=== PATIENT | male | born 1950 | race Caucasian/White ===

== ENCOUNTER 2023-11-10 11:08 | Outpatient (AMB) | payer MEDICARE, MEDICAID, SELFPAY ==
--- NOTE | 2023-11-10 11:20 | HO.NEPHOV_ITS ---
HPI HPI Comments History of Present Illness Details 73-year-old man with a history of hypert ension hyperlipidemia diabetes mellitus As disease obesity he is here for follow-up. He was previously seen during hospitalization. He had a history of pulmonary edema which was treated with Lasix. He did have an episode of SVT. He is currently being followed by Cardiology as well. History of acute kidney injury superimposed on chronic kidney disease. He is here for follow-up regarding the chronic kidney disease. He is being seen at the lymphedema clinic. He was on Lasix over he ran out of medications and for the last 3 weeks he has not been taking the Lasix. There has been no change in the leg edema. [facility] Surgical History H/O elbow surgery Family History Mother Diabetes Cancer Father Hypertension Social History Alcohol intake: former Patient Tobacco Use Status: Former Tobacco user Vital Signs 11/10/23 11:26 Height 5 ft 9 in Weight 257 lb BMI 37.9 BP 144/72 H Blood Pressure Location Lt brachial Position Sitting Pulse 84 Pulse Source Pulse Oximeter Pulse Oximetry (%) 99 Oxygen Delivery Method Room Air Physical Exam Vital Signs: Last Vital Signs Pulse 84 11/10/23 11:26 BP 144/72 H 11/10/23 11:26 Pulse Ox 99 11/10/23 11:26 Oxygen Delivery Method Room Air 11/10/23 11:26 BMI result Body Mass Index 37.9 Const General: comfortable Nutritional Appearance: well nourished Orientation/consciousness: patient oriented x3 HEENT Head: No normal to inspection Mouth: moist mucous membranes Neck Neck: Yes supple and Yes no JVD Resp Auscultation: clear to auscultation bilaterally, no rales and rub present Cardio Jugular venous distension: no JVD Palpation: no palpable S3 and no palpable S4 Heart sounds: no rubs GI Palpation (GI): Soft to palpation and nontender Percussion: No Fluid wave present General: Yes no CVA tenderness Back/Spine/Pelvis Back: no CVA tenderness Skin General skin exam: no rashes or lesions noted Neuro General: patient oriented x3 Assessment & Plan Assessment & Plan (1) CKD (chronic kidney disease): Code(s): N18.9 - Chronic kidney disease, unspecified (2) HTN (hypertension): Code(s): I10 - Essential (primary) hypertension (3) Edema: Code(s): R60.9 - Edema, unspecified (4) Hyponatremia: Code(s): E87.1 - Hypo-osmolality and hyponatremia Plan Elderly man with a history of CKD in a setting of longstanding hypertension diabetes medicine obesity. Renal function has been relatively stable. He had DONG which has resolved. Goal is to slow the portion disease. Continue to avoid hypotension. He has not been on Lasix for 3 weeks despite this there has been no change in his leg edema and he has no respiratory symptoms. Therefore we can hold off on Lasix for the time being and observe him. Continue overt nephrotoxic agents including NSAIDs. He will benefit from SGLT2 inhibitors As for the hyponatremia the recent serum sodium was normal. The serum sodium drops less than 130 millimoles I would recommend p.o. water restriction. Coding Level of Care Code Est Pt Level 4 (62110) Diagnoses CKD (chronic kidney disease) N18.9 HTN (hypertension) I10 Edema R60.9 Hyponatremia E87.1 Results Reviewed Results Reviewed: Labs pending Nephrology Results: No Data to Display
[2023-11-10 11:26] VITALS: BP 144/72; PULSE 84; O2SAT 99; BMI 37.9
== END 2023-11-10 11:37 | disposition home or self-care (01) ==
PROVIDERS: PCP Internal Medicine; Visit Provider Internal Medicine Hypertension Specialist
DX: I12.9 Hypertensive chronic kidney disease with stage 1 through stage 4 chronic kidney disease, or unspecified chronic kidney disease (principal); N18.9 Chronic kidney disease, unspecified; R60.9 Edema, unspecified; E87.1 Hypo-osmolality and hyponatremia
CPT/HCPCS: 99214

== ENCOUNTER → 2023-11-10 11:08 | Outpatient (BNVA) | payer MEDICARE, MEDICAID, SELFPAY | PROVIDERS: PCP Internal Medicine; Visit Provider Internal Medicine Hypertension Specialist | DX: I12.9 Hypertensive chronic kidney disease with stage 1 through stage 4 chronic kidney disease, or unspecified chronic kidney disease (principal); N18.9 Chronic kidney disease, unspecified; R60.9 Edema, unspecified; E87.1 Hypo-osmolality and hyponatremia | CPT/HCPCS: 99212 ==

== ENCOUNTER 2024-04-12 08:43 | Outpatient (AMB) | payer MEDICARE, MEDICAID, SELFPAY ==
[2024-04-12 08:54] VITALS: BP 144/66; PULSE 82; O2SAT 97; BMI 37.2
--- NOTE | 2024-04-12 08:54 | HO.NEPHOV_ITS ---
Vital Signs 04/12/24 08:54 04/12/24 09:11 Height 5 ft 9 in Weight 252 lb BMI 37.2 BP 144/66 H 124/66 Blood Pressure Location Lt brachial Lt brachial Position Sitting Sitting Pulse 82 Pulse Source Pulse Oximeter Pulse Oximetry (%) 97 Oxygen Delivery Method Room Air Intake Visit Reasons: March follow up/ Conf [employer]eng[employer]ving [employer]inter Required: No Accompanied by: Daughter Allergies brimonidine Allergy (Verified 04/12/24 08:58) Unknown Medication List - Last Reconciled 04/12/24 by Sahil Hummel MD ferrous sulfate 325 mg PO DAILY insulin glargine (Lantus Solostar U-100 Insulin) 45 units subcut insulin lispro (Humalog KwikPen (U-100) Insulin) 1 sliding scale dose subcut USEASDIRECTD latanoprost 0.005% 1 drp ophthalmic (eye) QPM timolol maleate 0.5% 1 drp ophthalmic (eye) QAM HPI Comments Details: 73-year-old man with a history of hypertension hyperlipidemia diabetes mellitus As disease obesity he is here for follow-up. He was previously seen during hospitalization. He had a history of pulmonary edema which was treated with Lasix. He did have an episode of SVT. He is currently being followed by Cardiology as well. History of acute kidney injury superimposed on chronic kidney disease. He is here for follow-up regarding the chronic kidney disease. He is being seen at the lymphedema clinic. He was on Lasix over he ran out of medications and for the last 3 weeks he has not been taking the Lasix. There has been no change in the leg edema. 04/12/24: Doing better. Blood sugar is better controlled Waiting to go to lymphedema clinic in May [facility] Surgical History H/O elbow surgery Family History Mother Diabetes Cancer Father Hypertension Social History Alcohol intake: former Patient Tobacco Use Status: Former Tobacco user Physical Exam Vital Signs: Last Vital Signs Pulse 82 04/12/24 08:54 BP 124/66 04/12/24 09:11 Pulse Ox 97 04/12/24 08:54 Oxygen Delivery Method Room Air 04/12/24 08:54 BMI result Body Mass Index 37.2 Const General: comfortable; No acute distress Orientation/consciousness: patient oriented x3 Eyes General: appearance normal, both eyes and all related structures Visual Perez: normal visual perez by confrontation Neck Neck: Yes supple and Yes no JVD Resp Effort & Inspection: normal respiratory effort and respiratory effort not decreased Auscultation: rhonchi Cardio Palpation: no palpable S3 and no palpable S4 Heart sounds: no rubs GI Inspection: Yes normal to inspection Palpation (GI): Soft to palpation Percussion: Yes normal to percussion Auscultation: normal bowel sounds General: Yes no CVA tenderness Back/Spine/Pelvis Back: no CVA tenderness Skin General skin exam: no petechiae and no purpura Neuro General: patient oriented x3 and no focal motor deficits Extrem General: No clubbing and Yes edema Results Reviewed Results Reviewed: Serum creatinine 1.4 on 02/17/2024 Nephrology Results: No Data to Display Assessment & Plan Assessment & Plan (1) CKD (chronic kidney disease): Code(s): N18.9 - Chronic kidney disease, unspecified Category: Medical (2) HTN (hypertension): Code(s): I10 - Essential (primary) hypertension Category: Medical (3) Edema: Code(s): R60.9 - Edema, unspecified Category: Medical (4) Hyponatremia: Code(s): E87.1 - Hypo-osmolality and hyponatremia Category: Medical Plan Elderly man with a history of CKD in a setting of longstanding hypertension ,diabetes ,obesity. Renal function has been relatively stable. He had DONG which has resolved. Goal is to slow the progression of thekidney disease. Continue to avoid hypotension. Creatinine remains relatively stable around 1.4 mg/dL. Off Lasix since Oct 2023 Continue overt nephrotoxic agents including NSAIDs. He will benefit from SGLT2 inhibitors As for the hyponatremia - the recent serum sodium was normal. The serum sodium drops less than 130 millimoles I would recommend p.o. water restriction. Orders: Orders Comprehensive Met. Panel Today N18.9 - Chronic kidney disease, unspecified Complete Blood Count Auto Diff Today N18.9 - Chronic kidney disease, unspecified Coding Level of Care Code Est Pt Level 4 (08931) Diagnoses CKD (chronic kidney disease) N18.9 HTN (hypertension) I10 Edema R60.9 Hyponatremia E87.1
[2024-04-12 09:11] VITALS: BP 124/66
== END 2024-04-12 09:19 | disposition home or self-care (01) ==
PROVIDERS: PCP Internal Medicine; Visit Provider Internal Medicine Hypertension Specialist
DX: I12.9 Hypertensive chronic kidney disease with stage 1 through stage 4 chronic kidney disease, or unspecified chronic kidney disease (principal); N18.9 Chronic kidney disease, unspecified; R60.9 Edema, unspecified; E87.1 Hypo-osmolality and hyponatremia
CPT/HCPCS: 99214

== ENCOUNTER 2024-04-12 09:21 | Outpatient (REF) | payer MEDICARE, MEDICAID, SELFPAY ==
[2024-04-12 18:05] LABS: MANUAL DIFF FLAG NO
[2024-04-12 18:10] LABS: Basophils Percent Auto 0.4 % (0-2); Eosinophils Absolute Auto 0.2 X10*3/uL (0.0-0.4); Hemoglobin 13.6 g/dl (14.0-18.0); Imm Gran Abs Auto 0.03 X10*3/uL (0.00-0.03); Imm Gran Pct Auto 0.4 % (0.0-0.4); Lymphocytes Percent Auto 13.3 % (20-40); Mean Corpuscular HGB Conc 32.4 g/dl (31.0-36.0); Mean Corpuscular Volume 86.6 fL (80.0-98.0); Mean Platelet Volume 11.2 fL (9.4-12.4); Monocytes Absolute Auto 0.6 X10*3/uL (0.1-1.2); Monocytes Percent Auto 7.7 % (2-11); Neutrophils Absolute Auto 5.6 x10*3/uL (2.0-8.3); Neutrophils Percent Auto 75.2 % (45-73); Platelet Count 203 X10*3/uL (160-400); Red Blood Count 4.85 X10*6/uL (4.60-5.80); Red Cell Distribution Width 12.9 % (11.0-16.0); White Blood Count 7.4 X10*3/uL (4.8-10.8)
[2024-04-12 18:34] LABS: Alanine Aminotransferase 10 U/L (0-40); Albumin Level 3.3 g/dL (3.5-5.0); Alkaline Phosphatase 84 U/L (39-117); Anion Gap 11 (12-20); Aspartate Amino Transferase 13 U/L (5-37); Bilirubin Total 0.6 mg/dL (0.0-1.0); Blood Urea Nitrogen 28 mg/dL (9-16); Calcium 8.4 mg/dL (8.4-10.2); Carbon Dioxide 27 mmol/L (22-29); Chloride 104 mmol/L (96-108); Estimated Glomerular Filt Rate 52; Glucose Random 195 mg/dL (60-115); Potassium 4.6 mmol/L (3.3-5.1); Sodium 137 mmol/L (135-145); Total Protein 7.4 g/dL (6.5-8.0)
== END 2024-04-12 09:22 | disposition home or self-care (01) ==
LOC: HO.HKASLDS 09:21
PROVIDERS: Visit Provider Internal Medicine Hypertension Specialist
DX: E11.22 Type 2 diabetes mellitus with diabetic chronic kidney disease (principal); I12.9 Hypertensive chronic kidney disease with stage 1 through stage 4 chronic kidney disease, or unspecified chronic kidney disease; N18.9 Chronic kidney disease, unspecified; E78.5 Hyperlipidemia, unspecified; R60.9 Edema, unspecified; E87.1 Hypo-osmolality and hyponatremia; E66.9 Obesity, unspecified
CPT/HCPCS: 36415; 80053; 85025; 99212

== ENCOUNTER 2024-11-01 08:57 | Outpatient (AMB) | payer MEDICARE, MEDICAID, SELFPAY ==
[2024-11-01 09:11] VITALS: BP 112/60; PULSE 78; O2SAT 98; BMI 36.0
--- NOTE | 2024-11-01 09:11 | HO.NEPHOV ---
Vital Signs 11/01/24 09:11 Height 5 ft 9 in Weight 244 lb BMI 36.0 BP 112/60 Blood Pressure Location Lt brachial Position Sitting Pulse 78 Pulse Source Pulse Oximeter Pulse Oximetry (%) 98 Oxygen Delivery Method Room Air Intake Visit Reasons: 6 mon follow up-Conf Supervisor Title Required: No Accompanied by: Daughter Allergies brimonidine Allergy (Verified 11/01/24 09:21) Unknown Medication List - Last Reconciled 11/01/24 by Sahil Hummel MD diltiazem HCl ER (Tiadylt ER) 180 mg PO DAILY ferrous sulfate 325 mg PO DAILY furosemide 20 mg PO QAM insulin glargine (Lantus Solostar U-100 Insulin) 45 units subcut insulin lispro (Humalog KwikPen (U-100) Insulin) 1 sliding scale dose subcut USEASDIRECTD isosorbide mononitrate ER 60 mg PO DAILY latanoprost 0.005% 1 drp ophthalmic (eye) QPM lidocaine 5% 1 patch topical DAILY timolol maleate 0.5% 1 drp ophthalmic (eye) QAM HPI Comments Details: 73-year-old man with a history of hypertension hyperlipidemia diabetes mellitus As disease obesity he is here for follow-up. He was previously seen during hospitalization. He had a history of pulmonary edema which was treated with Lasix. He did have an episode of SVT. He is currently being followed by Cardiology as well. History of acute kidney injury superimposed on chronic kidney disease. He is here for follow-up regarding the chronic kidney disease. He is being seen at the lymphedema clinic. He was on Lasix over he ran out of medications and for the last 3 weeks he has not been taking the Lasix. There has been no change in the leg edema. 04/12/24: Doing better. Blood sugar is better controlled Waiting to go to lymphedema clinic in 11/01/24 h/o Accidental fall in [place] 2023; s/p fractures and blood transfusion Later to [facility] until Oct 20 2024 Leg edema has improved No dyspnea [facility] Surgical History H/O elbow surgery Family History Mother Diabetes Cancer Father Hypertension Social History Alcohol intake: former Patient Tobacco Use Status: Former Tobacco user Physical Exam Vital Signs: Last Vital Signs Pulse 78 11/01/24 09:11 BP 112/60 11/01/24 09:11 Pulse Ox 98 11/01/24 09:11 Oxygen Delivery Method Room Air 11/01/24 09:11 BMI result Body Mass Index 36.0 Comfortable Neck supple no JVD. Lungs entry equal no rales. DEcreased Air entry on right base Heart S1-S2 heard no gallop or rub. Abdomen soft nontender. Neuro alert awake oriented. No asterixis. Extremities 1+ edema. Results Reviewed Nephrology Results: Hgb 13.6 g/dl (14.0-18.0) L 04/12/24 WBC 7.4 X10*3/uL (4.8-10.8) 04/12/24 Plt Count 203 X10*3/uL (160-400) 04/12/24 Sodium 137 mmol/L (135-145) 04/12/24 Potassium 4.6 mmol/L (3.3-5.1) 04/12/24 Chloride 104 mmol/L (96-108) 04/12/24 Carbon Dioxide 27 mmol/L (22-29) 04/12/24 BUN 28 mg/dL (9-16) H 04/12/24 Creatinine 1.35 mg/dL (0.5-1.4) 04/12/24 Calcium 8.4 mg/dL (8.4-10.2) 04/12/24 Assessment & Plan Assessment & Plan (1) CKD (chronic kidney disease): Code(s): N18.9 - Chronic kidney disease, unspecified Category: Medical (2) HTN (hypertension): Code(s): I10 - Essential (primary) hypertension Category: Medical (3) Edema: Code(s): R60.9 - Edema, unspecified Category: Medical (4) Hyponatremia: Code(s): E87.1 - Hypo-osmolality and hyponatremia Category: Medical Plan Elderly man with a history of CKD in a setting of longstanding hypertension ,diabetes ,obesity. Renal function has been relatively stable. He had DONG which has resolved. Goal is to slow the progression of thekidney disease. Continue to avoid hypotension. Sustained DONG - cr was 2.7 and returned to 1.42 as of 10/19/24 Creatinine has been relatively stable around 1.42 mg/dL. Continue overt nephrotoxic agents including NSAIDs. He will benefit from SGLT2 inhibitors As for the hyponatremia - the recent serum sodium was normal. The serum sodium drops less than 130 millimoles I would recommend p.o. water restriction. Keep on low dose Furosemide 20 mg QD Orders: Orders Basic Metabolic Panel 6 Months N18.9 - Chronic kidney disease, unspecified Complete Blood Count no Diff 6 Months N18.9 - Chronic kidney disease, unspecified Medications: New furosemide 20 mg PO QAM 90 tabs 1RF Coding Level of Care Code Est Pt Level 4 (37153) Diagnoses CKD (chronic kidney disease) N18.9 HTN (hypertension) I10 Edema R60.9 Hyponatremia E87.1
--- OUTSIDE RECORDS SUMMARY | 2024-11-01 09:14 | XMS_ITS | Clinical Summary ---
Author Organization Unknown Care Team Providers Care City Planning Engineer Name Role Phone ALCIRA HANDLEY, IMELDA Unavailable Unavailable GIANNA LOPEZ LPN, RONALD Unavailable Unavail arnold RANDALL RN, REGIS Unavailable Unavailable Payers Payer Name Policy Type Policy Number Effective Date Expira tion Date MEDICARE - [facility]/[place] - [facility] [id number] Problems Condition Name Condition Details Condition Category Status Onset Date Resolution Date Last Treatment Date Treating Clinician Comments HYP HRT AND CHR KDNY DIS W HRT FAIL AND STG 1-4/UNSP CHR KDNY Active 02-17 00:00: 00 HEART FAILURE, UNSPECIFIED Active 02-17 00:00: 00 TYPE 2 DIABETES MELLITUS W DIABETIC CHRONIC KIDNEY DISEASE Active 02-17 00:00: 00 CHRONIC KIDNEY DISEASE, STAGE 3 UNSPECIFIED Active 02-17 00:00: 00 TYPE 2 DIABETES MELLITUS WITH DIABETIC NEUROPATHY, UNSP Active 02-17 00:00: 00 TYPE 2 DIABETES W DIABETIC PERIPHERAL ANGIOPATH W/O GANGRENE Active 02-17 00:00: 00 ALLERGIC RHINITIS, UNSPECIFIED Active 02-17 00:00: 00 HYPERLIPIDEM IA, UNSPECIFIED Active 02-17 00:00: 00 LEGAL BLINDNESS, DEFINED IN [place] Active 02-17 00:00: 00 FDC (CURRENT) USE OF ASPIRIN Active 02-17 00:00: 00 FDC (CURRENT) USE OF INSULIN Active 02-17 00:00: 00 PERSONAL HISTORY OF NICOTINE DEPENDENCE Active 02-17 00:00: 00 Allergies, Adverse Reactions, Alerts Allergy Name Allergy Type Status Severity Reaction(s) Onset Date Inactive Date Treating Clinician Comments ALPHAGAN P EYE DROPS Propensity to adverse reactions Active 2023-02 15:05:1 1 Medications Ordered Medication Name Filled Medication Name Start Date Stop Date Current Medication? Ordering Clinician Indication Dosage Frequency Signature (SIG) Comments Components cephalexin 500 mg capsule 02-15 00:00: 00 02-22 23:59 :00 No [id number] 1 capsule 3 TIMES DAILY 1 capsule 3 TIMES DAILY (route: oral) Med Classific ation: Anti-Infe ctive Agents ammonium lactate 12 % lotion 02-17 00:00: 00 07-20 23:59 :00 No [id number] Per instruc tions 2 TIMES DAILY Per instructio ns 2 TIMES DAILY (route: topical) Med Classific ation: Dermatolo gical aspirin 81 mg tablet,marcy yed release 02-17 00:00: 00 07-20 23:59 :00 No [id number] 1 tablet DAILY 1 tablet DAILY (route: oral) Med Classific ation: Hematolog ical Agents atorvastati n 10 mg tablet 02-17 00:00: 00 07-20 23:59 :00 No [id number] 1 tablet DAILY 1 tablet DAILY (route: oral) Med Classific ation: Cardiovas cular Therapy Agents diltiazem ER 180 mg capsule,24 hr,extended release 02-17 00:00: 00 07-20 23:59 :00 No [id number] 1 capsule DAILY 1 capsule DAILY (route: oral) Med Classific ation: Cardiovas cular Therapy Agents ferrous sulfate 325 mg (65 mg iron) tablet 02-17 00:00: 00 07-20 23:59 :00 No [id number] 1 tablet DAILY 1 tablet DAILY (route: oral) Med Classific ation: Electroly te Balance-N utritiona l Products furosemide 20 mg tablet 02-17 00:00: 00 07-20 23:59 :00 No [id number] 1 tablet DAILY 1 tablet DAILY (route: oral) Med Classific ation: Cardiovas cular Therapy Agents insulin aspart (U-100) 100 unit/mL (3 mL) subcutaneou s pen 02-17 00:00: 00 07-20 23:59 :00 No [id number] Per instruc tions 3 TIMES DAILY Per instructio ns 3 TIMES DAILY (route: subcutaneo us) Med Classific ation: Endocrine isosorbide mononitrate ER 60 mg tablet,exte nded release 24 hr 02-17 00:00: 00 07-20 23:59 :00 No [id number] 1 tablet DAILY 1 tablet DAILY (route: oral) Med Classific ation: Cardiovas cular Therapy Agents latanoprost (PF) 0.005 % eye drops 02-17 00:00: 00 07-20 23:59 :00 No [id number] 1 drops DAILY 1 drops DAILY (route: ophthalmic (eye)) Med Classific ation: Ophthalmi c Agents Levemir FlexPen 100 unit/mL (3 mL) solution subcutaneou s insulin pen 02-17 00:00: 00 07-20 23:59 :00 No [id number] 45 unit BEDTIME 45 unit BEDTIME (route: subcutaneo us) Med Classific ation: Endocrine triamcinolo ne acetonide 0.1 % topical ointment 02-17 00:00: 00 07-20 23:59 :00 No [id number] 1 inch 2 TIMES DAILY 1 inch 2 TIMES DAILY (route: topical) Med Classific ation: Dermatolo gical Vital Signs Vital Name Observation Time Observation Value Commen ts Temperature 2023-03-12 10:21:00.000 98 [degF] Temperature 2023-03-05 17:42:00.000 97.4 [degF] Temperature 2023-02-26 10:25:00.000 98.6 [degF] Temperature 2023-02-23 13:57:00.000 98.5 [degF] Temperature 2023-02-19 14:28:00.000 97.5 [degF] Temperature 2023-02-17 09:44:00.000 98.1 [degF] BMI (%) 2023-02-17 09:44:00.000 37 kg/m2 Height 2023-02-17 09:44:00.000 70 [in_us] Pulse 2023-03-12 10:21:00.000 76 /min Pulse 2023-03-05 17:42:00.000 81 /min Pulse 2023-02-26 10:25:00.000 73 /min Pulse 2023-02-23 13:57:00.000 77 /min Pulse 2023-02-19 14:28:00.000 85 /min Pulse 2023-02-17 09:44:00.000 81 /min O2 Saturation (%) 2023-03-12 10:21:00.000 98 % O2 Saturation (%) 2023-03-05 17:42:00.000 98 % O2 Saturation (%) 2023-02-26 10:25:00.000 100 % O2 Saturation (%) 2023-02-23 13:57:00.000 99 % O2 Saturation (%) 2023-02-19 14:28:00.000 98 % O2 Saturation (%) 2023-02-17 09:44:00.000 98 % Respirations 2023-03-12 10:21:00.000 20 /min Respirations 2023-03-05 17:42:00.000 18 /min Respirations 2023-02-26 10:25:00.000 20 /min Respirations 2023-02-23 13:57:00.000 20 /min Respirations 2023-02-19 14:28:00.000 18 /min Respirations 2023-02-17 09:44:00.000 20 /min Weight (lbs) 2023-03-12 10:24:00.000 260 [lb_av] Weight (lbs) 2023-03-05 17:42:00.000 260 [lb_av] Weight (lbs) 2023-02-26 10:25:00.000 260 [lb_av] Weight (lbs) 2023-02-23 13:57:00.000 260 [lb_av] Weight (lbs) 2023-02-19 14:28:00.000 260 [lb_av] Weight (lbs) 2023-02-17 09:44:00.000 260.7 [lb_av] Systolic Blood Pressure 2023-03-12 10:21:00.000 130 mm [Hg] Systolic Blood Pressure 2023-03-05 17:42:00.000 124 mm [Hg] Systolic Blood Pressure 2023-02-26 10:25:00.000 136 mm [Hg] Systolic Blood Pressure 2023-02-23 13:57:00.000 138 mm [Hg] Systolic Blood Pressure 2023-02-19 14:28:00.000 124 mm [Hg] Systolic Blood Pressure 2023-02-17 09:44:00.000 156 mm [Hg] Diastolic Blood Pressure 2023-03-12 10:21:00.000 72 mm [Hg] Diastolic Blood Pressure 2023-03-05 17:42:00.000 72 mm [Hg] Diastolic Blood Pressure 2023-02-26 10:25:00.000 82 mm [Hg] Diastolic Blood Pressure 2023-02-23 13:57:00.000 74 mm [Hg] Diastolic Blood Pressure 2023-02-19 14:28:00.000 72 mm [Hg] Diastolic Blood Pressure 2023-02-17 09:44:00.000 86 mm [Hg] Plan of Treatment Planned Activity Planned Date Details Comments Future Scheduled Test SKILLED NU RSE TO EVALUATE PATIENT, IDENTIFY PRIMARY AND CO-MORBID CONDITIONS CODED PER CODING GUIDELINES, AND DEVELOP PATIENT SPECIFIC PLAN OF CARE THAT INCLUDES PATIENT GOAL FOR HOME HEALTH. [code = SKILLED NURSE TO EVALUATE PATIENT, IDENTIFY PRIMARY AND CO-MORBID CONDITIONS CODED PER CODING GUIDELINES, AND DEVELOP PATIENT SPECIFIC PLAN OF CARE THAT INCLUDES PATIENT GOAL FOR HOME HEALTH.] Future Scheduled Test SKILLED NU RSE TO PROVIDE TEACHING/REINFORCEMENT RELATED TO URINARY INCONTINENCE. [code = SKILLED NURSE TO PROVIDE TEACHING/REINFORCEMENT RELATED TO URINARY INCONTINENCE.] Future Scheduled Test SKILLED NU RSE FOR O/A OF LOWER EXTREMITIES TO IDENTIFY CHANGES OR LESIONS ASSOCIATED WITH DIABETES MELLITUS FOR EARLY INTERVENTIONS OF COMPLICATIONS. SKILLED NURSE TO PROVIDE INSTRUCTION ON PROPER DIABETIC SKIN/FOOT CARE. [code = SKILLED NURSE FOR O/A OF LOWER EXTREMITIES TO IDENTIFY CHANGES OR LESIONS ASSOCIATED WITH DIABETES MELLITUS FOR EARLY INTERVENTIONS OF COMPLICATIONS. SKILLED NURSE TO PROVIDE INSTRUCTION ON PROPER DIABETIC SKIN/FOOT CARE.] Future Scheduled Test SKILLED NU RSE TO REVIEW PATIENT MEDICATIONS. INSTRUCT PATIENT/CAREGIVER ON MONITORING OF EFFECTIVENESS, ADVERSE DRUG REACTIONS, SIDE EFFECTS OF ALL MEDICATIONS (PRESCRIPTION/-OTC), AND HOW AND WHEN TO REPORT PROBLEMS. [code = SKILLED NURSE TO REVIEW PATIENT MEDICATIONS. INSTRUCT PATIENT/CAREGIVER ON MONITORING OF EFFECTIVENESS, ADVERSE DRUG REACTIONS, SIDE EFFECTS OF ALL MEDICATIONS (PRESCRIPTION/-OTC), AND HOW AND WHEN TO REPORT PROBLEMS.] Future Scheduled Test SKILLED NU RSE TO PERFORM HOME SAFETY AND FALL ASSESSMENT AND PROVIDE INSTRUCTION TO IMPLEMENT HOME SAFETY AND FALL PREVENTION STRATEGIES. [code = SKILLED NURSE TO PERFORM HOME SAFETY AND FALL ASSESSMENT AND PROVIDE INSTRUCTION TO IMPLEMENT HOME SAFETY AND FALL PREVENTION STRATEGIES.] Future Scheduled Test SKILLED NU RSE TO PROVIDE ASSESSMENT AND TEACHING/REINFORCEMENT OF MANAGEMENT OF DEPRESSION INCLUDING DISEASE PROCESS, MEDICATION MANAGEMENT, COPING SKILLS AND IDENTIFY CHANGES ASSOCIATED WITH DEPRESSIVE DISORDERS FOR EARLY INTERVENTION. [code = SKILLED NURSE TO PROVIDE ASSESSMENT AND TEACHING/REINFORCEMENT OF MANAGEMENT OF DEPRESSION INCLUDING DISEASE PROCESS, MEDICATION MANAGEMENT, COPING SKILLS AND IDENTIFY CHANGES ASSOCIATED WITH DEPRESSIVE DISORDERS FOR EARLY INTERVENTION.] Future Scheduled Test SKILLED NU RSE MAY OBTAIN U/A AND CS X 3 IF INDICATED FOR SIGNS AND SYMPTOMS OF UTI INCLUDING URINARY URGENCY/FREQUENCY, DYSURIA, FOUL ODOR, HEMATURIA, AND/OR FEVER. [code = SKILLED NURSE MAY OBTAIN U/A AND CS X 3 IF INDICATED FOR SIGNS AND SYMPTOMS OF UTI INCLUDING URINARY URGENCY/FREQUENCY, DYSURIA, FOUL ODOR, HEMATURIA, AND/OR FEVER.] Future Scheduled Test PATIENT GÓMEZ S A RISK OF HOSPITALIZATION AND ED USE. SKILLED NURSE TO ESTABLISH SUPPORT MEASURES TO MINIMIZE RISK OF HOSPITALIZATION AND ED USE, AND INSTRUCT PATIENT/CAREGIVER ON METHODS TO REDUCE AVOIDABLE HOSPITALIZATION AND ED USE. [code = PATIENT HAS A RISK OF HOSPITALIZATION AND ED USE. SKILLED NURSE TO ESTABLISH SUPPORT MEASURES TO MINIMIZE RISK OF HOSPITALIZATION AND ED USE, AND INSTRUCT PATIENT/CAREGIVER ON METHODS TO REDUCE AVOIDABLE HOSPITALIZATION AND ED USE.] Future Scheduled Test SKILLED NU RSE TO PROVIDE INSTRUCTION TO PATIENT/CAREGIVER RELATED TO DISCHARGE PLANNING. [code = SKILLED NURSE TO PROVIDE INSTRUCTION TO PATIENT/CAREGIVER RELATED TO DISCHARGE PLANNING.] Future Scheduled Test SKILLED NU RSE FOR OBSERVATION AND ASSESSMENT OF PATIENTS PAIN LEVEL AND EFFECTIVENESS OF PAIN MANAGEMENT REGIMEN. SKILLED NURSE TO INSTRUCT PATIENT/CAREGIVER REGARDING PHARMACOLOGIC AND NON-PHARMACOLOGIC PAIN CONTROL MEASURES. SKILLED NURSE TO REPORT TO PHYSICIAN IF PAIN IS UNCONTROLLED WITH CURRENT PAIN MANAGEMENT REGIMEN. [code = SKILLED NURSE FOR OBSERVATION AND ASSESSMENT OF PATIENTS PAIN LEVEL AND EFFECTIVENESS OF PAIN MANAGEMENT REGIMEN. SKILLED NURSE TO INSTRUCT PATIENT/CAREGIVER REGARDING PHARMACOLOGIC AND NON-PHARMACOLOGIC PAIN CONTROL MEASURES. SKILLED NURSE TO REPORT TO PHYSICIAN IF PAIN IS UNCONTROLLED WITH CURRENT PAIN MANAGEMENT REGIMEN.] Future Scheduled Test SKILLED NU RSE FOR O/A, TEACHING AND MANAGEMENT OF CKD FOR EARLY IDENTIFICATION OF EXACERBATION OF DISEASE PROCESS [code = SKILLED NURSE FOR O/A, TEACHING AND MANAGEMENT OF CKD FOR EARLY IDENTIFICATION OF EXACERBATION OF DISEASE PROCESS] Future Scheduled Test SKILLED NU RSE FOR O/A RELATED TO SIGNS AND SYMPTOMS OF INFECTION AND TO PROVIDE TEACHING REGARDING INFECTION CONTROL MEASURES RIGHT BUTT CELLULITIS. [code = SKILLED NURSE FOR O/A RELATED TO SIGNS AND SYMPTOMS OF INFECTION AND TO PROVIDE TEACHING REGARDING INFECTION CONTROL MEASURES RIGHT BUTT CELLULITIS.] Future Scheduled Test NEED FOR S KILLED TEACHING AND INTERVENTION RELATED TO STAGE 1 ON R BUTTOCKS SKILLED NURSE OR TRAINED PATIENT/CAREGIVER TO PERFORM WOUND CARE USING ASEPTIC TECHNIQUE, CLEANSE/IRRIGATE WITH NS PAT DRY WITH GAUZE, APPLY ZGUARD TO PERIWOUND, COVER WITH BORDERED FOAM DRESSING, WOUND CARE TO BE PERFORMED EVERY OTHER DAY AND PRN IF SOILED OR DISLODGED. 1-2 PRN SKILLED NURSE VISITS FOR WOUND CARE DUE TO COMPLICATIONS. SKILLED NURSE TO OBTAIN WOUND CULTURE PRN S/S OF INFECTION. WOUND CARE WILL BE PERFORMED BY TRAINED CAREGIVER ON DAYS WHEN SKILLED NURSE IS NOT SCHEDULED FOR A VISIT. DISCONTINUE WOUND CARE/SUPPLIES ONCE WOUND IS HEALED. [code = NEED FOR SKILLED TEACHING AND INTERVENTION RELATED TO STAGE 1 ON R BUTTOCKS SKILLED NURSE OR TRAINED PATIENT/CAREGIVER TO PERFORM WOUND CARE USING ASEPTIC TECHNIQUE, CLEANSE/IRRIGATE WITH NS PAT DRY WITH GAUZE, APPLY ZGUARD TO PERIWOUND, COVER WITH BORDERED FOAM DRESSING, WOUND CARE TO BE PERFORMED EVERY OTHER DAY AND PRN IF SOILED OR DISLODGED. 1-2 PRN SKILLED NURSE VISITS FOR WOUND CARE DUE TO COMPLICATIONS. SKILLED NURSE TO OBTAIN WOUND CULTURE PRN S/S OF INFECTION. WOUND CARE WILL BE PERFORMED BY TRAINED CAREGIVER ON DAYS WHEN SKILLED NURSE IS NOT SCHEDULED FOR A VISIT. DISCONTINUE WOUND CARE/SUPPLIES ONCE WOUND IS HEALED.] Future Scheduled Test SKILLED NU RSE FOR O/A TO IDENTIFY CHANGES ASSOCIATED WITH NEUROPATHY AND PROVIDE INSTRUCTION RELATED TO SAFETY MEASURES TO PREVENT INJURY SECONDARY TO IMPAIRED NEUROLOGICAL STATUS. SKILLED NURSE TO REPORT SIGNIFICANT CHANGES OF NEUROLOGIC STATUS TO PHYSICIAN FOR EARLY INTERVENTION. [code = SKILLED NURSE FOR O/A TO IDENTIFY CHANGES ASSOCIATED WITH NEUROPATHY AND PROVIDE INSTRUCTION RELATED TO SAFETY MEASURES TO PREVENT INJURY SECONDARY TO IMPAIRED NEUROLOGICAL STATUS. SKILLED NURSE TO REPORT SIGNIFICANT CHANGES OF NEUROLOGIC STATUS TO PHYSICIAN FOR EARLY INTERVENTION.] Future Scheduled Test SKILLED NU RSE FOR O/A AND SKILLED TEACHING IN MANAGEMENT OF DIABETIC PERIPHERAL ANGIOPATHY [code = SKILLED NURSE FOR O/A AND SKILLED TEACHING IN MANAGEMENT OF DIABETIC PERIPHERAL ANGIOPATHY] Future Scheduled Test SKILLED NU RSE TO ASSESS HOME SAFETY FOR PATIENT WITH IMPAIRED VISION AND INSTRUCT PATIENT/CAREGIVER ON SAFETY TECHNIQUES FOR ADLS AND IADLS, MEDICATION MANAGEMENT, AND HOME ADAPTATION. [code = SKILLED NURSE TO ASSESS HOME SAFETY FOR PATIENT WITH IMPAIRED VISION AND INSTRUCT PATIENT/CAREGIVER ON SAFETY TECHNIQUES FOR ADLS AND IADLS, MEDICATION MANAGEMENT, AND HOME ADAPTATION.] Future Scheduled Test SKILLED NU RSE TO ASSESS PATIENT'S SKIN INTEGRITY AND INSTRUCT PATIENT/CAREGIVER ON MEASURES TO PREVENT PRESSURE ULCERS [code = SKILLED NURSE TO ASSESS PATIENT'S SKIN INTEGRITY AND INSTRUCT PATIENT/CAREGIVER ON MEASURES TO PREVENT PRESSURE ULCERS] Future Scheduled Test SKILLED NU RSE TO PROVIDE TEACHING ON SIGNS AND SYMPTOMS AND MANAGEMENT OF HYPERTENSION. [code = SKILLED NURSE TO PROVIDE TEACHING ON SIGNS AND SYMPTOMS AND MANAGEMENT OF HYPERTENSION.] Future Scheduled Test SKILLED NU RSE FOR O/A FOR TEACHING AND SELF-MANAGEMENT RELATED TO HEART FAILURE. INSTRUCT PATIENT/CAREGIVER ON SIGNS AND SYMPTOMS OF EXACERBATION TO REPORT. WEIGHT TO BE OBTAINED DAILY AND WEIGHT GAIN OF 2 LBS OVERNIGHT OR 5 LBS IN 1 WEEK TO BE REPORTED TO PHYSICIAN. [code = SKILLED NURSE FOR O/A FOR TEACHING AND SELF-MANAGEMENT RELATED TO HEART FAILURE. INSTRUCT PATIENT/CAREGIVER ON SIGNS AND SYMPTOMS OF EXACERBATION TO REPORT. WEIGHT TO BE OBTAINED DAILY AND WEIGHT GAIN OF 2 LBS OVERNIGHT OR 5 LBS IN 1 WEEK TO BE REPORTED TO PHYSICIAN. ] Future Scheduled Test SKILLED NU RSE FOR O/A AND TEACHING OF DIABETIC MANAGEMENT INCLUDING BLOOD SUGAR MONITORING/USE OF GLUCOMETER, DIABETIC DIET, LOWER EXTREMITY SKIN INSPECTION, PROPER SKIN/FOOT CARE, AND SIGNS AND SYMPTOMS HYPO/HYPERGLYCEMIA TO REPORT AND METHODS TO MANAGE [code = SKILLED NURSE FOR O/A AND TEACHING OF DIABETIC MANAGEMENT INCLUDING BLOOD SUGAR MONITORING/USE OF GLUCOMETER, DIABETIC DIET, LOWER EXTREMITY SKIN INSPECTION, PROPER SKIN/FOOT CARE, AND SIGNS AND SYMPTOMS HYPO/HYPERGLYCEMIA TO REPORT AND METHODS TO MANAGE] Future Scheduled Test VIRTUAL SIT FREQUENCY: 1-6 PER WEEK X 2 WEEKS AND 6 PRN VIRTUAL VISITS MAY BE PERFORMED UTILIZING TELECOMRMIICATIONS SYSTEM TO OPTIMIZE SKILLED SERVICES FURNISHED ON THE PLAN OF CARE. SKILLED NURSE TO ESTABLISH SUPPORT MEASURES TO MINIMIZE RISK OF REHOSPITALIZATION, AND INSTRUCT PATIENT/CAREGIVER ON METHODS TO REDUCE AVOIDABLE HOSPITALIZATION. [code = VIRTUAL VISIT FREQUENCY: 1-6 PER WEEK X 2 WEEKS AND 6 PRN VIRTUAL VISITS MAY BE PERFORMED UTILIZING TELECOMMUNICATIONS SYSTEM TO OPTIMIZE SKILLED SERVICES FURNISHED ON THE PLAN OF CARE. SKILLED NURSE TO ESTABLISH SUPPORT MEASURES TO MINIMIZE RISK OF REHOSPITALIZATION, AND INSTRUCT PATIENT/CAREGIVER ON METHODS TO REDUCE AVOIDABLE HOSPITALIZATION.] Goal 2023-03-12 Patient Goal - TO FEEL GIL R Goal Provider Goal - A PLAN OF CARE WILL BE ESTABLISHED THAT MEETS PATIENT'S LONG TERM NEEDS AND INCLUDES PATIENT GOAL FOR HOME HEALTH. Goal Provider Goal - PATIENT / CAREGIVER WILL VERBALIZE UNDERSTANDING OF EFFECTS OF URINARY INCONTINENCE BY THE END OF THE CERTIFICATION PERIOD. Goal Provider Goal - CHANGES IN LOWER EXTREMITIES WILL BE IDENTIFIED AND REPORTED TO MD FOR PROMPT INTERVENTION TO PREVENT ASSOCIATED RISKS THROUGHOUT THE CERTIFICATION PERIOD. PATIENT/CAREGIVER WILL VERBALIZE UNDERSTANDING OF PROPER DIABETIC SKIN/FOOT CARE BY THE END OF THE CERTIFICATION PERIOD. Goal Provider Goal - PATIENT/CAREGIVER WILL VERBALIZE UNDERSTANDING OF EDUCATION PROVIDED ON MEDICATIONS BY THE END OF THE CERTIFICATION PERIOD. Goal Provider Goal - PATIENT/CAREGIVER WILL VERBALIZE/DEMONSTRATE EFFECTIVE HOME SAFETY AND FALL PREVENTION STRATEGIES THROUGHOUT CERTIFICATION PERIOD. Goal Provider Goal - PATIENT/CAREGIVER WILL VERBALIZE/DEMONSTRATE UNDERSTANDING OF THE MANAGEMENT OF DEPRESSION BY THE END OF THE EPISODE AND SYMPTOMS ARE IDENTIFIED AND MANAGED TO MAINTAIN PATIENT SAFETY IN THE HOME Goal Provider Goal - URINE SPECIMEN WILL BE OBTAINED PRN FOR SIGNS AND SYMPTOMS OF UTI AND RESULTS WILL BE REPORTED TO PHYSICIAN THROUGHOUT THE CERTIFICATION PERIOD. Goal Provider Goal - PATIENT WILL HAVE SUPPORT MEASURES ESTABLISHED TO PREVENT HOSPITALIZATION AND ED USE AND PATIENT/CAREGIVER WILL VERBALIZE/DEMONSTRATE METHODS TO REDUCE AVOIDABLE HOSPITALIZATION AND ED USE BY END OF EPISODE. Goal Provider Goal - PATIENT/CAREGIVER WILL VERBALIZE UNDERSTANDING OF DISCHARGE PLANNING INSTRUCTIONS BY DATE OF DISCHARGE. Goal Provider Goal - PATIENT/CAREGIVER WILL DEMONSTRATE UNDERSTANDING OF PHARMACOLOGIC AND NONPHARMACOLOGIC PAIN CONTROL MEASURES AND PATIENT WILL HAVE IMPROVEMENT IN PAIN INTERFERING WITH ACTIVITY EVIDENCED BY PAIN CONTROLLED AT LEVEL OF 7 OR LESS BY END OF CERTIFICATION PERIOD. Goal Provider Goal - PATIENT/CAREGIVER WILL VERBALIZE UNDERSTANDING OF GENITOURINARY DISEASE PROCESS, AND EXACERBATIONS OF GENITOURINARY DISEASE WILL BE PROMPTLY IDENTIFIED FOR EARLY INTERVENTION THROUGHOUT THE CERTIFICATION PERIOD. Goal Provider Goal - PATIENT/CAREGIVER WILL VERBALIZE/DEMONSTRATE INFECTION CONTROL MEASURES AND SIGNS AND SYMPTOMS OF INFECTION WILL BE IDENTIFIED AND PHYSICIAN NOTIFIED FOR PROMPT INTERVENTION THROUGHOUT THE CERTIFICATION PERIOD. Goal Provider Goal - WOUND CARE WILL BE COMPLETED AND PATIENT WILL HAVE IMPROVED WOUND STATUS EVIDENCED BY NO SIGNS AND SYMPTOMS OF INFECTION, DECREASED WOUND SIZE, AND/OR NO COMPLICATIONS BY THE END OF THE CERTIFICATION PERIOD. Goal Provider Goal - CHANGES IN NEUROLOGIC STATUS WILL BE IDENTIFIED AND REPORTED TO THE PHYSICIAN FOR PROMPT INTERVENTION OF ASSOCIATED RISK. PATIENT/CAREGIVER WILL VERBALIZE/DEMONSTRATE APPROPRIATE SAFETY MEASURES TO PREVENT INJURY BY THE END OF THE CERTIFICATION PERIOD. Goal Provider Goal - PATIENT/CAREGIVER WILL VERBALIZE/DEMONSTRATE THE ABILITY TO MANAGE CIRCULATORY DISEASE PROCESS AND EXACERBATIONS WILL BE IDENTIFIED FOR EARLY INTERVENTION THROUGHOUT THE CERTIFICATION PERIOD. Goal Provider Goal - PATIENT/CAREGIVER WILL BE ABLE TO APPLY PRINCIPLES OF ENVIRONMENTAL MODIFICATION TO MAINTAIN THE LEVEL OF SAFETY FOR THE LOW VISION PATIENT WITHIN THE HOME SETTING AND PREVENT FALL/INJURY THIS EPISODE Goal Provider Goal - PATIENT/CAREGIVER WILL VERBALIZE UNDERSTANDING OF PRESSURE ULCER PREVENTION BY END OF THE EPISODE. Goal Provider Goal - PATIENT/CAREGIVER WILL VERBALIZE SIGNS AND SYMPTOMS OF HYPERTENSION AND WILL BE ABLE TO DEMONSTRATE ABILITY TO MANAGE EXACERBATION BY END OF THE EPISODE. Goal Provider Goal - PATIENT/CAREGIVER WILL VERBALIZE/DEMONSTRATE KNOWLEDGE AND MANAGEMENT OF HEART FAILURE DISEASE PROCESS BY END OF EPISODE. Goal Provider Goal - PATIENT/CAREGIVER WILL VERBALIZE/DEMONSTRATE KNOWLEDGE OF DIABETIC MANAGEMENT. CHANGES IN DIABETIC STATUS WILL BE IDENTIFIED AND REPORTED TO PHYSICIAN FOR PROMPT INTERVENTION THROUGHOUT THE CERTIFICATION PERIOD. Goal Provider Goal - PATIENT/CAREGIVER WILL UTILIZE VIRTUAL VISITS TO ACHIEVE GOALS OUTLINED ON THE PLAN OF CARE. PATIENT WILL HAVE SUPPORT MEASURES ESTABLISHED TO PREVENT HOSPITALIZATION AND PATIENT/CAREGIVER WILL VERBALIZE/DEMONSTRATE METHODS TO REDUCE AVOIDABLE HOSPITALIZATION THROUGHOUT THE CERTIFICATION PERIOD. Reason for Visit INDEPENDENT IN THE HOME Encounters Start Date/Time End Date/Time Encounter Type Admission Type Attending [facility] Care Department Encounter ID Discharge Date Discharge Status Discharge Condition Discharge Reason Percent Goals Met 2023-02-17 00:00:00 2023-03-12 00:00:00 Outpatient NEW ADMISSION [facility] [id number] 00:00:00 DISCHARGE TO HOME OR SELF CARE INDEPENDEN T IN THE HOME PER FAMILY REQUEST [phone]
--- OUTSIDE RECORDS SUMMARY | 2024-11-01 09:14 | XMS_ITS | Continuity of Care Document ---
Author Organization [facility] Address [address] [place] [address] [address] [place] [address]- Care Team Providers Care Visual Journalist Name Role Phone Patt HANDLEY, Jordy Kruse Primary Care Physician Encounter [facility] Date(s): 09/25/24 - 10/25/[address] [place], [place] [address] Encounter Type: Triage Allergies, Adverse Reactions, Alerts Substance Criticality Severity Reaction Reaction Severity Status Alphagan Active Medications . ., See Instructions, # 1 each, Refills 0, Tot. Refills 0, Maintenance, Dx Physical deconditioning Front-wheel walker, 03/08/22 8:46:00 AM EDT, Supply Start Date: 03/08/22 Status: Ordered Quantity: 1.0 Unit: each Repeat number: 1 Amlactin 12% cream 1 application, Topically, Daily at bedtime, # 140 Gm, 2 Refills, Maintenance, 10/31/13 9:11:03 AM EST, Cream, [id number], 1 application Topically Daily at bedtime Start Date: 10/31/13 Status: Ordered Quantity: 140.0 Unit: g Repeat number: 3 aspirin 81 mg oral tablet 1 tablet, By Mouth, Daily at bedtime, # 30 tablet, 0 Refills, Maintenance, 08/22/11 2:03:42 AM EDT, Tablet Start Date: 08/22/11 Status: Ordered Quantity: 30.0 Unit: tablet Repeat number: 1 Compression Stockings surgical, calf length 20-30 mm Hg, # 2 pair, Refills 5, Tot. Refills 5, Maintenance, Dx: Chronic Venous Hypertension, with prior ulceration., 11/06/14 8:58:54 AM EST Start Date: 11/06/14 Status: Ordered Quantity: 2.0 Unit: pair Repeat number: 6 DilTIAZem (Eqv-Cardizem CD) 180 mg/24 hours oral capsule, extended release 1 capsule = 180 mg, By Mouth, Daily, # 30 capsule, 0 Refills, Maintenance, 03/08/22 8:58:00 AM EDT, [facility], Partial fill upon patient request if the prescription is for a schedule IIopioid drug., 175, cm, 03/08/22 7:16:00 EDT, Height, 115.4, kg, 03/04/22 2:51:00 EDT, Dry Weight Start Date: 03/08/22 Status: Ordered Quantity: 30.0 Unit: capsule Repeat number: 1 docusate-senna 50 mg-187 mg oral tablet 2 tablet, By Mouth, 2 times a day, PRN Constipation, # 60 tablet, 0 Refills, Maintenance, 03/08/22 8:58:00 AM EDT, Tablet, [facility], Partial fill upon patient request if the prescription is for a schedule II opioid drug., 2 tablet By Mouth 2 times a day,PRN:Constipation, 175, cm, 03/08/22 7:16:00 EDT, Height, 115.4, kg, 03/04/22 2:51:00 EDT, Dry Weight Start Date: 03/08/22 Status: Ordered Quantity: 60.0 Unit: tablet Repeat number: 1 Dorzolamide-Timolol Ophthalmic Eyes, Both, 2 times a day, 0 Refills, Maintenance, 08/22/11 2:05:51 AM EDT Start Date: 08/22/11 Status: Ordered Repeat number: 1 ferrous sulfate 325 mg oral enteric coated tablet 325 mg, By Mouth, Daily, # 30 tablet, Refills 0, Tot. Refills 0, Maintenance, 03/08/22 8:58:00 AM EDT, Route to Pharmacy Electronically, [facility], Partial fill upon patient request if the prescription is for a schedule II opioid drug., 175, cm, 03/08/22 7:16:00 EDT, Height, 115.4, kg, 03/04/22 2:51:00 EDT, Dry Weight Start Date: 03/08/22 Stop Date: 04/07/22 Status: Ordered Quantity: 30.0 Unit: tablet Repeat number: 1 gabapentin 100 mg oral capsule 100 mg, By Mouth, 3 times a day, # 90 capsule, Refills 0, Tot. Refills 0, Maintenance, 07/12/24 12:01:00 PM EDT, Route to Pharmacy Electronically, [facility], Partial fill upon patient request if the prescription is for a schedule II opioid drug., 180, cm, 07/05/24 9:33:00 EDT, Height,116.5, kg, 07/05/24 9:33:00 EDT, Dry Weight Start Date: 07/12/24 Stop Date: 08/11/24 Status: Ordered Quantity: 90.0 Unit: capsule Repeat number: 1 insulin lispro 100 u/ml subcutaneous injection 10-24 units, Subcutaneous Injection, 3 times a day before meals, << Sliding Scale Comments >> 100 - 139 10 units Call if less than 70 140 - 179 12 units 180 - 219 14 units 220 - 259 16 units 260 - 299 18 units 300 - 339 20 units 340 - 379 22 units 380 - 419 24 units Call if greater [id number] << Sliding Scale Comments >>, # 15 mL, 0 Refills, Maintenance, 03/08/22 8:58:00 AM EDT, Injection, [facility], Partial fill upon patient request if the prescription is for a schedule II opioid drug., 175, cm, 03/08/22 7:16:00 EDT, Height, 115.4, kg, 03/04/22 2:51:00 EDT, Dry Weight Start Date: 03/08/22 Stop Date: 04/07/22 Status: Ordered Quantity: 15.0 Unit: mL Repeat number: 1 isosorbide mononitrate 60 mg oral tablet, extended release 60 mg, 1, tablet, By Mouth, Daily in AM, # 30 tablet, Refills 0, Tot. Refills 0, Maintenance, 03/08/22 8:59:00 AM EDT, Route to Pharmacy Electronically, [facility], Partial fill upon patient request if the prescription is for a schedule II opioid drug., 175, cm, 03/08/22 7:16:00 EDT, Height, 115.4, kg, 03/04/22 2:51:00 EDT, Dry Weight Start Date: 03/08/22 Status: Ordered Quantity: 30.0 Unit: tablet Repeat number: 1 Lantus Inj 0.45 mL = 45 units, Subcutaneous Injection, Daily at bedtime, 0 Refills, Maintenance, 03/08/22 8:49:00 AM EDT, Injection, Partial fill upon patient request if the prescription is for a schedule II opioid drug. Start Date: 03/08/22 Status: Ordered Repeat number: 1 Lasix 20 mg oral tablet 20 mg, 1, tablet, By Mouth, Daily, # 30 tablet, Refills 0, Tot. Refills 0, Maintenance, 03/08/22 8:58:00 AM EDT, Route to Pharmacy Electronically, [facility], Partial fill upon patient request if the prescription is for a schedule II opioid drug., 175, cm, 03/08/22 7:16:00 EDT, Height,115.4, kg, 03/04/22 2:51:00 EDT, Dry Weight Start Date: 03/08/22 Status: Ordered Quantity: 30.0 Unit: tablet Repeat number: 1 Lidoderm 5% film 1 patch, Topically, Daily, # 5 patch, 0 Refills, Maintenance, 04/19/19 2:21:52 PM EDT Start Date: 04/19/19 Stop Date: 04/24/19 Status: Ordered Quantity: 5.0 Unit: patch Repeat number: 1 Lipitor 10 mg oral tablet 1 tablet, By Mouth, Daily, # 90 tablet, 0 Refills, Maintenance, 08/22/11 2:05:05 AM EDT, Tablet Start Date: 08/22/11 Status: Ordered Quantity: 90.0 Unit: tablet Repeat number: 1 Loratadine 10 mg, By Mouth, PRN, Refills 0, Maintenance, 06/09/16 9:05:10 PM EDT Start Date: 06/09/16 Status: Ordered Repeat number: 1 metFORMIN 500 mg oral tablet 1 tablet = 500 mg, By Mouth, Daily, with meals, # 30 tablet, 0 Refills, Maintenance, 03/08/22 8:50:00 AM EDT, Tablet, Partial fill upon patient request if the prescription is for a schedule II opioid drug. Start Date: 03/08/22 Status: Ordered Quantity: 30.0 Unit: tablet Repeat number: 1 Milk of Magnesia Liquid 30 mL, By Mouth, 2 times a day, PRN Constipation, 0 Refills, Maintenance, 07/12/24 12:03:00 PM EDT, Suspension, Partial fill upon patient request if the prescription is for a schedule II opioid drug. Start Date: 07/12/24 Status: Ordered Repeat number: 1 MiraLax oral powder for reconstitution = 17 Gm, By Mouth, Daily, dissolve in water before taking, # 527 Gm, 0 Refills, Maintenance, 03/08/22 8:59:00 AM EDT, REC Powder, [facility], Partial fill upon patient request if the prescription is for a schedule II opioid drug., 17 Gm By Mouth Daily,Instr:dissolve in water before taking, 175, cm, 03/08/22 7:16:00 EDT, Height, 115.4, kg, 03/04/22 2:51:00 EDT, Dry Weight Start Date: 03/08/22 Status: Ordered Quantity: 527.0 Unit: g Repeat number: 1 Problem List Condition Confirmation Course Effective Dates Status H ealth Status Informant CKD (chronic kidney disease), stage IV Confirmed Active Claudication Confirmed Active Diabetic neuropathy Confirmed Active Obese class II Confirmed Active Pad Confirmed Active PVD (peripheral vascular disease) Confirmed Active Venous insufficiency Confirmed Active Social History Social History Type Response Smoking Status Never smoker entered on: 11/06/14 Sex Sex Representation Male (finding) Patient Care team information Care Team Personnel Name: Tila Acevedo RN Position: [facility] RN Member Role: Primary Care Nurse Name: Christiane Bynum RN Position: [facility] RN Member Role: Primary Care Nurse Name: Jean Luong LPN Position: S RN Member Role: Primary Care Nurse Name: Carmelo Goodrich RN Position: S RN Member Role: Primary Care Nurse Name: Miya Maier RN Position: S RN Member Role: Primary Care Nurse Name: Zofia Badlwin RN Position: S RN Member Role: Primary Care Nurse Name: Flower Mcneal RN Position: S RN Member Role: Primary Care Nurse Name: Patt HANDLEY, Jordy Kruse Position: Reference Physician Member Role: PCP Address: [address] [place] [id number] Telecom: Name: Wyatt Toledo MD Position: [facility] Renal MD Member Role: Lifetime Consulting Physician Address: [facility] [address] [facility] [place] [address]- Telecom: Care Team Related Persons Name: PAPO ERAZO Name: PAPO ERAZO Insurance Providers Guarantor name: MATA CASEY Health Plan Information #: 1 Payer: MEDICARE PART B OUTPT Member Number: NA Policy Number: NA Group Number: NA Health Plan Information #: 2 Payer: [place] Member Number: NA Policy Number: NA Group Number: NA
--- OUTSIDE RECORDS SUMMARY | 2024-11-01 09:15 | XMS_ITS | Clinical Summary ---
Author Organization Unknown Care Team Providers Care Factory Laborer Name Role Phone ALCIRA HANDLEY, IMELDA Unavailable Unavailable [place] RN, ROSITA Unavailable Unavailable JEFRY BOWMAN LPN, RICHARD Unavailable Patti RUFFIN ([facility]) [facility] [place] Unavailable Unavailable Payers Payer Name Policy Type Policy Number Effective Date Expira tion Date [place] [id number] MEDICAID [facility] [id number] Problems Condition Name Condition Details Condition Category Status Onset Date Resolution Date Last Treatment Date Treating Clinician Comments HYP HRT AND CHR KDNY DIS W HRT FAIL AND STG 1-4/UNSP CHR KDNY Active 10-18 00:00: 00 CHRONIC DIASTOLIC (CONGESTIVE) HEART FAILURE Active 10-18 00:00: 00 TYPE 2 DIABETES MELLITUS W DIABETIC CHRONIC KIDNEY DISEASE Active 10-18 00:00: 00 CHRONIC KIDNEY DISEASE, STAGE 3A Active 10-18 00:00: 00 ANEMIA IN CHRONIC KIDNEY DISEASE Active 10-18 00:00: 00 TYPE 2 DIABETES MELLITUS WITH DIABETIC NEUROPATHY, UNSP Active 10-18 00:00: 00 TYPE 2 DIABETES W DIABETIC PERIPHERAL ANGIOPATH W/O GANGRENE Active 10-18 00:00: 00 ANXIETY DISORDER, UNSPECIFIED Active 10-18 00:00: 00 SUDDEN VISUAL LOSS, RIGHT EYE Active 10-18 00:00: 00 HYPERLIPIDEM IA, UNSPECIFIED Active 10-18 00:00: 00 UNSPECIFIED GLAUCOMA Active 10-18 00:00: 00 OTH FRACTURE OF SHAFT OF R HUMERUS, SUBS FOR FX W ROUTN HEAL Active 10-18 00:00: 00 MULTIPLE FX OF RIBS, UNSP SIDE, SUBS FOR FX W ROUTN HEAL Active 10-18 00:00: 00 PLEURAL EFFUSION, NOT ELSEWHERE CLASSIFIED Active 10-18 00:00: 00 PRSNL HX OF TIA (TIA), AND CEREB INFRC W/O RESID DEFICITS Active 10-18 00:00: 00 HISTORY OF FALLING Active 10-18 00:00: 00 ASSISTED (CURRENT) USE OF INSULIN Active 10-18 00:00: 00 Allergies, Adverse Reactions, Alerts Allergy Name Allergy Type Status Severity Reaction(s) Onset Date Inactive Date Treating Clinician Comments NKA Propensity to adverse reactions Active 2024-10 23:23:3 2 Medications Ordered Medication Name Filled Medication Name Start Date Stop Date Current Medication? Ordering Clinician Indication Dosage Frequency Signature (SIG) Comments Components ascorbic acid (vitamin C) 500 mg tablet 10-21 00:00: 00 Yes [id number] 1 tablet DAILY 1 tablet DAILY (route: oral) Med Classific ation: Electroly te Balance-N utritiona l Products Calcium with Vitamin D 600 mg-10 mcg (400 unit) tablet 10-21 00:00: 00 Yes [id number] 1 tablet DAILY 1 tablet DAILY (route: oral) Med Classific ation: Electroly te Balance-N utritiona l Products DILT-XR 180 mg capsule, extended release 10-21 00:00: 00 Yes [id number] 1 capsule DAILY 1 capsule DAILY (route: oral) Med Classific ation: Cardiovas cular Therapy Agents gabapentin 100 mg capsule 10-21 00:00: 00 Yes [id number] 1 capsule BEDTIME 1 capsule BEDTIME (route: oral) Med Classific ation: Central Nervous System Agents Iron (ferrous sulfate) 325 mg (65 mg iron) tablet 10-21 00:00: 00 Yes [id number] 1 tablet DAILY 1 tablet DAILY (route: oral) Med Classific ation: Electroly te Balance-N utritiona l Products isosorbide mononitrate ER 60 mg tablet,exte nded release 24 hr 10-21 00:00: 00 Yes [id number] 1 tablet DAILY 1 tablet DAILY (route: oral) Med Classific ation: Cardiovas cular Therapy Agents Lantus Solostar U-100 Insulin 100 unit/mL (3 mL) subcutaneou s pen 10-21 00:00: 00 Yes [id number] 35 unit BEDTIME 35 unit BEDTIME (route: subcutaneo us) Med Classific ation: Endocrine Lasix 20 mg tablet 10-21 00:00: 00 Yes [id number] 1 tablet DAILY 1 tablet DAILY (route: oral) Med Classific ation: Cardiovas cular Therapy Agents lidocaine 5 % topical patch 10-21 00:00: 00 Yes [id number] 1 adhesiv e patch, medicat ed DAILY 1 adhesive patch, medicated DAILY (route: topical) Med Classific ation: Dermatolo gical multivitami n tablet 10-21 00:00: 00 Yes [id number] 1 tablet DAILY 1 tablet DAILY (route: oral) Med Classific ation: Electroly te Balance-N utritiona l Products Tylenol Extra Strength 500 mg tablet 10-21 00:00: 00 Yes [id number] 2 tablet 3 TIMES DAILY 2 tablet 3 TIMES DAILY (route: oral) Med Classific ation: Analgesic , Anti-infl ammatory or Antipyret ic Zinc-220 50 mg zinc (220 mg) capsule 10-21 00:00: 00 Yes [id number] 1 capsule DAILY 1 capsule DAILY (route: oral) Med Classific ation: Electroly te Balance-N utritiona l Products Vital Signs Vital Name Observation Time Observation Value Commen ts Temperature 2024-10-31 09:39:00.000 97.7 [degF] Temperature 2024-10-30 10:45:00.000 98.3 [degF] Temperature 2024-10-26 17:32:00.000 97.8 [degF] Temperature 2024-10-21 12:17:00.000 98.1 [degF] BMI (%) 2024-10-21 12:17:00.000 33 kg/m2 Height 2024-10-21 12:17:00.000 71 [in_us] Pulse 2024-10-31 09:39:00.000 78 /min Pulse 2024-10-30 10:45:00.000 72 /min Pulse 2024-10-26 17:32:00.000 84 /min Pulse 2024-10-21 12:17:00.000 76 /min O2 Saturation (%) 2024-10-30 10:45:00.000 98 % O2 Saturation (%) 2024-10-26 17:32:00.000 97 % O2 Saturation (%) 2024-10-21 12:17:00.000 95 % Respirations 2024-10-31 09:39:00.000 18 /min Respirations 2024-10-30 10:45:00.000 16 /min Respirations 2024-10-26 17:32:00.000 18 /min Respirations 2024-10-21 12:17:00.000 20 /min Weight (lbs) 2024-10-21 12:17:00.000 240 [lb_av] Systolic Blood Pressure 2024-10-31 09:42:00.000 122 mm [Hg] Systolic Blood Pressure 2024-10-30 10:45:00.000 110 mm [Hg] Systolic Blood Pressure 2024-10-26 17:32:00.000 132 mm [Hg] Systolic Blood Pressure 2024-10-21 12:17:00.000 120 mm [Hg] Diastolic Blood Pressure 2024-10-31 09:42:00.000 66 mm [Hg] Diastolic Blood Pressure 2024-10-30 10:45:00.000 72 mm [Hg] Diastolic Blood Pressure 2024-10-26 17:32:00.000 80 mm [Hg] Diastolic Blood Pressure 2024-10-21 12:17:00.000 60 mm [Hg] Plan of Treatment Planned Activity [...] Scheduled Test SKILLED NU RSE TO ASSESS ANXIETY AND PROVIDE ASSISTANCE TO PATIENT FOR UNDERSTANDING AND MANAGEMENT OF FEELINGS. [code = SKILLED NURSE TO ASSESS ANXIETY AND PROVIDE ASSISTANCE TO PATIENT FOR UNDERSTANDING AND MANAGEMENT OF FEELINGS.] Future Scheduled Test SKILLED NU RSE FOR O/A, TEACHING, AND MANAGEMENT OF HLD, ATRIAL TACHYCARDIA. [code = SKILLED NURSE FOR O/A, TEACHING, AND MANAGEMENT OF HLD, ATRIAL TACHYCARDIA. ] Future Scheduled Test SKILLED NU RSE FOR O/A, TEACHING AND MANAGEMENT OF CKD FOR EARLY IDENTIFICATION OF EXACERBATION OF DISEASE PROCESS [code = SKILLED NURSE FOR O/A, TEACHING AND MANAGEMENT OF CKD FOR EARLY IDENTIFICATION OF EXACERBATION OF DISEASE PROCESS] Future Scheduled Test OCCUPATION AL THERAPIST TO EVALUATE PATIENT FOR STRENGTH TRAINING RIGHT ARM, NEEDED DME FOR ADLS [code = OCCUPATIONAL THERAPIST TO EVALUATE PATIENT FOR STRENGTH TRAINING RIGHT ARM, NEEDED DME FOR ADLS] Future Scheduled Test SKILLED NU RSE FOR O/A OF MUSCULOSKELETAL STATUS AND TEACHING ON MEASURES TO MANAGE PAIN AND TO MAINTAIN SAFETY WITH ACTIVITY [code = SKILLED NURSE FOR O/A OF MUSCULOSKELETAL STATUS AND TEACHING ON MEASURES TO MANAGE PAIN AND TO MAINTAIN SAFETY WITH ACTIVITY] Future Scheduled Test SKILLED NU RSE FOR O/A TO IDENTIFY CHANGES ASSOCIATED WITH DYSPHASIA, ATAXIA, RIGHT SIDE WEAKNESS AND PROVIDE INSTRUCTION RELATED TO SAFETY MEASURES TO PREVENT INJURY SECONDARY TO IMPAIRED NEUROLOGICAL STATUS. SKILLED NURSE TO REPORT SIGNIFICANT CHANGES OF NEUROLOGIC STATUS TO PHYSICIAN FOR EARLY INTERVENTION. [code = SKILLED NURSE FOR O/A TO IDENTIFY CHANGES ASSOCIATED WITH DYSPHASIA, ATAXIA, RIGHT SIDE WEAKNESS AND PROVIDE INSTRUCTION RELATED TO SAFETY MEASURES TO PREVENT INJURY SECONDARY TO IMPAIRED NEUROLOGICAL STATUS. SKILLED NURSE TO REPORT SIGNIFICANT CHANGES OF NEUROLOGIC STATUS TO PHYSICIAN FOR EARLY INTERVENTION.] Future Scheduled Test SKILLED NU RSE FOR O/A AND SKILLED TEACHING IN MANAGEMENT OF PVD, LYMPHEDEMA CIRCULATORY/VASCULAR DISEASE. [code = SKILLED NURSE FOR O/A AND SKILLED TEACHING IN MANAGEMENT OF PVD, LYMPHEDEMA CIRCULATORY/VASCULAR DISEASE.] Future Scheduled Test SKILLED NU RSE TO ASSESS HOME SAFETY FOR PATIENT WITH IMPAIRED VISION AND INSTRUCT PATIENT/CAREGIVER ON SAFETY TECHNIQUES FOR ADLS AND IADLS, MEDICATION MANAGEMENT, AND HOME ADAPTATION. [code = SKILLED NURSE TO ASSESS HOME SAFETY FOR PATIENT WITH IMPAIRED VISION AND INSTRUCT PATIENT/CAREGIVER ON SAFETY TECHNIQUES FOR ADLS AND IADLS, MEDICATION MANAGEMENT, AND HOME ADAPTATION.] Future Scheduled Test PHYSICAL T HERAPIST TO EVALUATE PATIENT FOR STRENGTH AND GAIT TRAINING [code = PHYSICAL THERAPIST TO EVALUATE PATIENT FOR STRENGTH AND GAIT TRAINING ] Future Scheduled Test SKILLED NU RSE TO PROVIDE TEACHING ON SIGNS AND SYMPTOMS AND MANAGEMENT OF HYPERTENSION. [code = SKILLED NURSE TO PROVIDE TEACHING ON SIGNS AND SYMPTOMS AND MANAGEMENT OF HYPERTENSION.] Future Scheduled Test SKILLED NU RSE TO INSTRUCT PATIENT/CAREGIVER ON WARNING SIGNS OF CVA, RISK FACTORS, AND METHODS TO MANAGE ASSISTED EFFECTS OF CVA. [code = SKILLED NURSE TO INSTRUCT PATIENT/CAREGIVER ON WARNING SIGNS OF CVA, RISK FACTORS, AND METHODS TO MANAGE ASSISTED EFFECTS OF CVA.] Future Scheduled Test SKILLED NU RSE FOR O/A AND SKILLED TEACHING RELATED TO SIGNS AND SYMPTOMS AND MANAGEMENT OF ANEMIA. [code = SKILLED NURSE FOR O/A AND SKILLED TEACHING RELATED TO SIGNS AND SYMPTOMS AND MANAGEMENT OF ANEMIA.] Future Scheduled Test SKILLED NU RSE FOR O/A AND TEACHING OF DIABETIC MANAGEMENT INCLUDING BLOOD SUGAR MONITORING/USE OF GLUCOMETER, DIABETIC DIET, LOWER EXTREMITY SKIN INSPECTION, PROPER SKIN/FOOT CARE, AND SIGNS AND SYMPTOMS HYPO/HYPERGLYCEMIA TO REPORT. [code = SKILLED NURSE FOR O/A AND TEACHING OF DIABETIC MANAGEMENT INCLUDING BLOOD SUGAR MONITORING/USE OF GLUCOMETER, DIABETIC DIET, LOWER EXTREMITY SKIN INSPECTION, PROPER SKIN/FOOT CARE, AND SIGNS AND SYMPTOMS HYPO/HYPERGLYCEMIA TO REPORT.] Future Scheduled Test SKILLED NU RSE FOR O/A AND SKILLED TEACHING RELATED TO SIGNS AND SYMPTOMS AND MANAGEMENT OF MULTIPLE RIBS FX, HUMERUS FX [code = SKILLED NURSE FOR O/A AND SKILLED TEACHING RELATED TO SIGNS AND SYMPTOMS AND MANAGEMENT OF MULTIPLE RIBS FX, HUMERUS FX] Future Scheduled Test PATIENT GÓMEZ S A [...] PLANNING.] Future Scheduled Test SKILLED NU RSE TO PERFORM ENVIRONMENTAL SAFETY RISK ASSESSMENT AND FALL RISK ASSESSMENT AND PROVIDE INSTRUCTION TO IMPLEMENT ENVIRONMENTAL SAFETY AND FALL PREVENTION STRATEGIES THROUGHOUT THE CERTIFICATION PERIOD. SKILLED NURSE WILL MAINTAIN SITUATIONAL AWARENESS AND WILL NOTIFY CLINICAL FIELD CROP TECHNICAL OFFICER AND PHYSICIAN/PROVIDER WITH ANY CHANGE IN CONDITION. [code = SKILLED NURSE TO PERFORM ENVIRONMENTAL SAFETY RISK ASSESSMENT AND FALL RISK ASSESSMENT AND PROVIDE INSTRUCTION TO IMPLEMENT ENVIRONMENTAL SAFETY AND FALL PREVENTION STRATEGIES THROUGHOUT THE CERTIFICATION PERIOD. SKILLED NURSE WILL MAINTAIN SITUATIONAL AWARENESS AND WILL NOTIFY CLINICAL FIELD CROP TECHNICAL OFFICER AND PHYSICIAN/PROVIDER WITH ANY CHANGE IN CONDITION.] Future Scheduled Test SKILLED NU RSE FOR [...] REGIMEN.] Future Scheduled Test SKILLED NU RSE TO ASSESS PATIENT'S SKIN INTEGRITY AND INSTRUCT PATIENT/CAREGIVER ON MEASURES TO PREVENT PRESSURE ULCERS. [code = SKILLED NURSE TO ASSESS PATIENT'S SKIN INTEGRITY AND INSTRUCT PATIENT/CAREGIVER ON MEASURES TO PREVENT PRESSURE ULCERS.] Future Scheduled Test SKILLED NU RSE TO INSTRUCT PATIENT/CAREGIVER ON S/S OF DM NEUROPATHY AND METHODS TO MANAGE. [code = SKILLED NURSE TO INSTRUCT PATIENT/CAREGIVER ON S/S OF DM NEUROPATHY AND METHODS TO MANAGE.] Future Scheduled Test PHYSICAL T HERAPIST TO EVALUATE PATIENT SECONDARY TO FUNCTIONAL DEFICITS/SAFETY CONCERNS. PHYSICAL THERAPY TO ESTABLISH /UPGRADE/DOWNGRADE THERAPEUTIC EXERCISE PROGRAM AND INSTRUCT PATIENT/CAREGIVER ON EXERCISE PRECAUTIONS WITH WRITTEN HOME PROGRAM. MAY INCLUDE PROM, AAROM, AROM, RROM APPROPRIATE TO IMPROVE FUNCTIONAL STRENGTH AND RANGE OF MOTION. PHYSICAL THERAPY TO INSTRUCT PATIENT/CAREGIVER ON BED MOBILITY TECHNIQUES TO IMPROVE PATIENT MOBILITY AND POSITIONING TECHNIQUES IN ORDER TO INCREASE PATIENTS COMFORT AND DECREASE RISK OF SKIN BREAKDOWN. PHYSICAL THERAPY TO INSTRUCT PATIENT/CAREGIVER ON SAFE TRANSFER TECHNIQUES USING PROPER BODY MECHANICS AND EQUIPMENT. PHYSICAL THERAPY TO INSTRUCT PATIENT/CAREGIVER ON GAIT TRAINING TECHNIQUES USING APPROPRIATE ASSISTIVE DEVICE, PROPER BODY MECHANICS TO IMPROVE MOBILITY, AND PREVENT INJURY OF PATIENT AND/OR CAREGIVER. PHYSICAL THERAPY TO ASSESS AND RECOMMEND HOME SAFETY ADAPTATIONS AND EDUCATE PATIENT /CAREGIVER ON FALL PREVENTION STRATEGIES. PHYSICAL THERAPY FOR OBSERVATION AND ASSESSMENT OF PAIN, EFFECTIVENESS OF PAIN MANAGEMENT REGIMEN AND SKILLED TEACHING RELATED TO PAIN MANAGEMENT. THERAPIST TO REPORT INCREASED PAIN LEVEL TO PHYSICIAN FOR PROMPT INTERVENTION. PHYSICAL THERAPY TO INSTRUCT PATIENT/CAREGIVER ON BALANCE AND BALANCE STRATEGIES TO IMPROVE SAFE MOBILITY AND REDUCE RISK FOR FALL AND INJURY SUMMARY OF THERAPY EVAL/ASSESSMENT FINDINGS AND REASON(S) SKILLS OF A THERAPIST ARE INDICATED: 10/30: PATIENT IS A 74-YEAR-OLD MALE WITH HISTORY OF TYPE 2 DIABETES, CHRONIC BILATERAL LOWER EXTREMITY WOUNDS, PVD, CKD STAGE 3, PERIPHERAL NEUROPATHY, HEART FAILURE WITH PRESERVED EJECTION FRACTION, HYPERTENSION, HYPERLIPIDEMIA, LEGAL BLINDNESS, PRESENTS REFERRAL FOR HOME PT SERVICES STATUS POST STR/SNF STAY FOR RECONDITIONING STATUS POST FALL DOWN FLIGHT OF STAIRS AT HOME AND SUSTAINED SEVERAL RIGHT SIDED RIB FRACTURES AND RIGHT HUMERAL HEAD FRACTURE. PATIENT WAS NONWEIGHTBEARING RIGHT UPPER EXTREMITY AND SLING BUT PROGRESSED TO RANGE OF MOTION TOLERATED AND ABLE TO BEGIN WEIGHTBEARING EXERCISES THIS WEEK AFTER FOLLOW UP APPOINTMENT WITH [facility]. PLOF: LIVES WITH DAUGHTER IN SINGLE FAMILY HOME WITH 3 STAIRS TO ENTER. PATIENT IS TYPICALLY INDEPENDENT WITH COMMUNITY MOBILITY AND ADLS WITH STRAIGHT CANE USE, INDEPENDENT WITH MOST IADLS, PATIENT HAS HAD 2 FALLS IN THE LAST YEAR. PATIENT'S PRIMARY GOAL WITH HOME PT SERVICES TO PROMOTE RETURN TO PRIOR LEVEL OF FUNCTION. RIGHT SHOULDER ACTIVE ASSISTED RANGE OF MOTION 45 DEGREES FOR FLEXION/ABDUCTION TODAY. PATIENT DEMONSTRATES LOWER EXTREMITY WEAKNESS EVIDENCED BY 30 SECOND [id number] SCORE LESS THAN 8 REPETITIONS, HE HAS ELEVATED RISK FOR FALLS AND POTENTIAL REHOSPITALIZATION GIVEN TINETTI SCORE 19/30 WELL. HE WILL REQUIRE HOME PT SERVICES IN ORDER TO MAXIMIZE CURRENT LEVEL OF FUNCTION AND INDEPENDENCE TO ALLOW PATIENT TO SAFELY ACCESS AND NAVIGATE HIS HOME ENVIRONMENT HE CURRENTLY REQUIRES CGA X1 FOR TRANSFERS FROM VARIOUS HEIGHTS AND SURFACES AROUND HIS HOME, LEVEL SURFACE AMBULATION WITH STRAIGHT CANE USE, AND 4 STAIR NAVIGATION. WILL PLAN FOR WEEKLY PT VISITS UNTIL END OF EPISODE TO IMPLEMENT PLAN OF CARE. VERBAL ORDER RECEIVED FROM ANGELIQUE AT MD OFFICE FOR PT PLAN OF CARE PHYSICAL THERAPY TO PROVIDE MANUAL THERAPY TECHNIQUES INCLUDING SOFT TISSUE MOBILIZATION AND JOINT MOBILIZATIONS TO RIGHT GLENOHUMERAL JOINT TO ASSIST WITH PAIN CONTROL AND/OR JOINT MOBILITY. PHYSICAL THERAPIST TO ASSESS BEST PRACTICE INTERVENTIONS TO ASSIST PATIENTS TO IMPROVE OR STABILIZE MEDICAL STATUS AND PREVENT RE-HOSPITALIZATION. MEASURES INCLUDING REVIEW AND IDENTIFICATION OF CONCERNS FOR THE FOLLOWING AREAS: CARDIAC, CHF, CVA, DEPRESSION, DRUG REGIMEN, DIABETIC FOOT CARE, ENVIRONMENTAL SAFETY ISSUES AND FALLS, PRESSURE ULCERS, PAIN, AND DISEASE MANAGEMENT. [code = PHYSICAL THERAPIST TO EVALUATE PATIENT SECONDARY TO FUNCTIONAL DEFICITS/SAFETY CONCERNS. PHYSICAL THERAPY TO ESTABLISH /UPGRADE/DOWNGRADE THERAPEUTIC EXERCISE PROGRAM AND INSTRUCT PATIENT/CAREGIVER ON EXERCISE PRECAUTIONS WITH WRITTEN HOME PROGRAM. MAY INCLUDE PROM, AAROM, AROM, RROM APPROPRIATE TO IMPROVE FUNCTIONAL STRENGTH AND RANGE OF MOTION. PHYSICAL THERAPY TO INSTRUCT PATIENT/CAREGIVER ON BED MOBILITY TECHNIQUES TO IMPROVE PATIENT MOBILITY AND POSITIONING TECHNIQUES IN ORDER TO INCREASE PATIENTS COMFORT AND DECREASE RISK OF SKIN BREAKDOWN. PHYSICAL THERAPY TO INSTRUCT PATIENT/CAREGIVER ON SAFE TRANSFER TECHNIQUES USING PROPER BODY MECHANICS AND EQUIPMENT. PHYSICAL THERAPY TO INSTRUCT PATIENT/CAREGIVER ON GAIT TRAINING TECHNIQUES USING APPROPRIATE ASSISTIVE DEVICE, PROPER BODY MECHANICS TO IMPROVE MOBILITY, AND PREVENT INJURY OF PATIENT AND/OR CAREGIVER. PHYSICAL THERAPY TO ASSESS AND RECOMMEND HOME SAFETY ADAPTATIONS AND EDUCATE PATIENT /CAREGIVER ON FALL PREVENTION STRATEGIES. PHYSICAL THERAPY FOR OBSERVATION AND ASSESSMENT OF PAIN, EFFECTIVENESS OF PAIN MANAGEMENT REGIMEN AND SKILLED TEACHING RELATED TO PAIN MANAGEMENT. THERAPIST TO REPORT INCREASED PAIN LEVEL TO PHYSICIAN FOR PROMPT INTERVENTION. PHYSICAL THERAPY TO INSTRUCT PATIENT/CAREGIVER ON BALANCE AND BALANCE STRATEGIES TO IMPROVE SAFE MOBILITY AND REDUCE RISK FOR FALL AND INJURY SUMMARY OF THERAPY EVAL/ASSESSMENT FINDINGS AND REASON(S) SKILLS OF A THERAPIST ARE INDICATED: 10/30: PATIENT IS A 74-YEAR-OLD MALE WITH HISTORY OF TYPE 2 DIABETES, CHRONIC BILATERAL LOWER EXTREMITY WOUNDS, PVD, CKD STAGE 3, PERIPHERAL NEUROPATHY, HEART FAILURE WITH PRESERVED EJECTION FRACTION, HYPERTENSION, HYPERLIPIDEMIA, LEGAL BLINDNESS, PRESENTS REFERRAL FOR HOME PT SERVICES STATUS POST STR/SNF STAY FOR RECONDITIONING STATUS POST FALL DOWN FLIGHT OF STAIRS AT HOME AND SUSTAINED SEVERAL RIGHT SIDED RIB FRACTURES AND RIGHT HUMERAL HEAD FRACTURE. PATIENT WAS NONWEIGHTBEARING RIGHT UPPER EXTREMITY AND SLING BUT PROGRESSED TO RANGE OF MOTION TOLERATED AND ABLE TO BEGIN WEIGHTBEARING EXERCISES THIS WEEK AFTER FOLLOW UP APPOINTMENT WITH [facility]. PLOF: LIVES WITH DAUGHTER IN SINGLE FAMILY HOME WITH 3 STAIRS TO ENTER. PATIENT IS TYPICALLY INDEPENDENT WITH COMMUNITY MOBILITY AND ADLS WITH STRAIGHT CANE USE, INDEPENDENT WITH MOST IADLS, PATIENT HAS HAD 2 FALLS IN THE LAST YEAR. PATIENT'S PRIMARY GOAL WITH HOME PT SERVICES TO PROMOTE RETURN TO PRIOR LEVEL OF FUNCTION. RIGHT SHOULDER ACTIVE ASSISTED RANGE OF MOTION 45 DEGREES FOR FLEXION/ABDUCTION TODAY. PATIENT DEMONSTRATES LOWER EXTREMITY WEAKNESS EVIDENCED BY 30 SECOND [id number] SCORE LESS THAN 8 REPETITIONS, HE HAS ELEVATED RISK FOR FALLS AND POTENTIAL REHOSPITALIZATION GIVEN TINETTI SCORE 19/30 WELL. HE WILL REQUIRE HOME PT SERVICES IN ORDER TO MAXIMIZE CURRENT LEVEL OF FUNCTION AND INDEPENDENCE TO ALLOW PATIENT TO SAFELY ACCESS AND NAVIGATE HIS HOME ENVIRONMENT HE CURRENTLY REQUIRES CGA X1 FOR TRANSFERS FROM VARIOUS HEIGHTS AND SURFACES AROUND HIS HOME, LEVEL SURFACE AMBULATION WITH STRAIGHT CANE USE, AND 4 STAIR NAVIGATION. WILL PLAN FOR WEEKLY PT VISITS UNTIL END OF EPISODE TO IMPLEMENT PLAN OF CARE. VERBAL ORDER RECEIVED FROM ANGELIQUE BOSTON MD OFFICE FOR PT PLAN OF CARE PHYSICAL THERAPY TO PROVIDE MANUAL THERAPY TECHNIQUES INCLUDING SOFT TISSUE MOBILIZATION AND JOINT MOBILIZATIONS TO RIGHT GLENOHUMERAL JOINT TO ASSIST WITH PAIN CONTROL AND/OR JOINT MOBILITY. PHYSICAL THERAPIST TO ASSESS BEST PRACTICE INTERVENTIONS TO ASSIST PATIENTS TO IMPROVE OR STABILIZE MEDICAL STATUS AND PREVENT RE-HOSPITALIZATION. MEASURES INCLUDING REVIEW AND IDENTIFICATION OF CONCERNS FOR THE FOLLOWING AREAS: CARDIAC, CHF, CVA, DEPRESSION, DRUG REGIMEN, DIABETIC FOOT CARE, ENVIRONMENTAL SAFETY ISSUES AND FALLS, PRESSURE ULCERS, PAIN, AND DISEASE MANAGEMENT. ] Goal Patient Goal - HEAL Goal Provider Goal - A PLAN OF CARE WILL BE ESTABLISHED THAT MEETS PATIENT'S MCC NEEDS AND INCLUDES PATIENT GOAL FOR HOME HEALTH. Goal Provider Goal - PATIENT/CAREGIVER WILL VERBALIZE UNDERSTANDING OF EDUCATION PROVIDED ON MEDICATIONS BY THE END OF THE CERTIFICATION PERIOD. Goal Provider Goal - SYMPTOMS OF ANXIETY ARE IDENTIFIED AND INTERVENTIONS INITIATED TO ENABLE PATIENT TO UNDERSTAND AND MANAGE FEELINGS THROUGHOUT EPISODE. Goal Provider Goal - PATIENT/CAREGIVER WILL VERBALIZE/DEMONSTRATE MANAGEMENT OF CARDIAC DISEASE PROCESS AND EXACERBATIONS WILL BE IDENTIFIED AND PROMPTLY REPORTED THROUGHOUT THE CERTIFICATION PERIOD. Goal Provider Goal - PATIENT/CAREGIVER WILL VERBALIZE UNDERSTANDING OF GENITOURINARY DISEASE PROCESS, AND EXACERBATIONS OF GENITOURINARY DISEASE WILL BE PROMPTLY IDENTIFIED FOR EARLY INTERVENTION THROUGHOUT THE CERTIFICATION PERIOD. Goal Provider Goal - OCCUPATIONAL THERAPY EVALUATION TO BE COMPLETED WITH RECOMMENDATIONS AND WRITTEN PLAN OF TREATMENT ESTABLISHED FOR THE PHYSICIANS SIGNATURE. Goal Provider Goal - PATIENT/CAREGIVER WILL VERBALIZE/DEMONSTRATE ABILITY TO MANAGE MUSCULOSKELETAL DISEASE WHILE MAINTAINING SAFETY THROUGHOUT THE EPISODE. Goal Provider Goal - CHANGES IN NEUROLOGIC [...] FALL/INJURY THIS EPISODE Goal Provider Goal - A PHYSICAL THERAPY EVALUATION TO BE COMPLETED WITH RECOMMENDATIONS AND/OR WRITTEN PLAN OF TREATMENT ESTABLISHED FOR PHYSICIANS SIGNATURE. Goal Provider Goal - PATIENT/CAREGIVER WILL VERBALIZE SIGNS AND SYMPTOMS OF HYPERTENSION AND WILL BE ABLE TO DEMONSTRATE ABILITY TO MANAGE EXACERBATION BY END OF THE EPISODE. Goal Provider Goal - PATIENT/CAREGIVER WILL DEMONSTRATE COMPLIANCE WITH TREATMENT REGIME AND VERBALIZE SIGNS AND SYMPTOMS TO REPORT WELL POSSIBLE COMPLICATIONS OF CVA BY END OF EPISODE. Goal Provider Goal - PATIENT/CARGIVER WILL VERBALIZE UNDERSTANDING OF ANEMIA INCLUDING SIGNS AND SYMPTOMS, MANAGEMENT OF COMPLICATIONS, AND PRESCRIBED TREATMENT REGIMEN BY END OF EPISODE. Goal Provider Goal - PATIENT/CAREGIVER WILL VERBALIZE/DEMONSTRATE KNOWLEDGE OF DIABETIC MANAGEMENT. CHANGES IN DIABETIC STATUS WILL BE IDENTIFIED AND REPORTED TO PHYSICIAN FOR PROMPT INTERVENTION THROUGHOUT THE CERTIFICATION PERIOD. Goal Provider Goal - PATIENT/CAREGIVER WILL VERBALIZE UNDERSTANDING OF MUSCULOSKELETAL DISEASE INCLUDING SIGNS AND SYMPTOMS, MANAGEMENT, AND PRESCRIBED TREATMENT REGIMEN BY END OF EPISODE. Goal Provider Goal - PATIENT WILL HAVE SUPPORT MEASURES ESTABLISHED TO PREVENT HOSPITALIZATION AND ED USE AND PATIENT/CAREGIVER WILL VERBALIZE/DEMONSTRATE METHODS TO REDUCE AVOIDABLE HOSPITALIZATION AND ED USE BY END OF EPISODE. Goal Provider Goal - PATIENT/CAREGIVER WILL VERBALIZE UNDERSTANDING OF DISCHARGE PLANNING INSTRUCTIONS BY DATE OF DISCHARGE. Goal Provider Goal - PATIENT/CAREGIVER WILL VERBALIZE/DEMONSTRATE EFFECTIVE ENVIRONMENTAL SAFETY AND FALL PREVENTION STRATEGIES, WILL REMAIN SAFE IN THE COMMUNITY, AND WILL BE FREE OF DANGER TO SELF AND OTHERS THROUGHOUT THE CERTIFICATION PERIOD. Goal Provider Goal - PATIENT/CAREGIVER WILL DEMONSTRATE [...] Goal Provider Goal - PATIENT/CAREGIVER WILL VERBALIZE S/S OF NEUROPATHY AND METHODS TO MANAGE BY END OF CERTIFICATION PERIOD. Goal Provider Goal - PHYSICAL THERAPY EVALUATION TO BE COMPLETED WITH RECOMMENDATIONS AND/OR WRITTEN TREATMENT PLAN OF CARE ESTABLISHED FOR THE PHYSICIANS SIGNATURE PATIENT/CAREGIVER WILL PERFORM THERAPEUTIC EXERCISE/S AND DEMONSTRATE PARTICIPATION IN A HOME PROGRAM. PATIENT/CAREGIVER WILL DEMONSTRATE IMPROVED BED MOBILITY TECHNIQUES. PATIENT/CAREGIVER WILL DEMONSTRATE SAFE TRANSFERS USING APPROPRIATE ASSISTIVE DEVICE, BODY MECHANICS AND EQUIPMENT. PATIENT/CAREGIVER WILL DEMONSTRATE IMPROVED GAIT TECHNIQUES TO MINIMIZE RISK OF INJURY. PATIENT/CAREGIVER WILL DEMONSTRATE/VERBALIZE UNDERSTANDING OF RECOMMENDATIONS TO INCREASE SAFETY IN THE HOME AND FALL PREVENTION. INCREASED PAIN OR INEFFECTIVE PAIN CONTROL MEASURES WILL BE IDENTIFIED AND PROMPTLY REPORTED TO THE PHYSICIAN. PATIENT/CAREGIVER WILL DEMONSTRATE EFFECTIVE PAIN MANAGEMENT. PATIENT/CAREGIVER WILL DEMONSTRATE IMPROVED BALANCE AND REDUCE THE RISK OF FALLS AND INJURY. PHYSICAL THERAPIST WILL PERFORM MANUAL THERAPY TECHNIQUES. PATIENT/CAREGIVER VERBALIZES UNDERSTANDING OF THE INITIAL BEST PRACTICE RECOMMENDATIONS. PHYSICIAN TO BE NOTIFIED APPROPRIATE FOR ANY CHANGES OR COMPLICATIONS THROUGHOUT THE CERTIFICATION PERIOD. Progress Notes Progress Notes <paragraph>[Visit Date: 2024 by MAREK COMER LPN]:</paragraph><paragraph>SNV ABNORMAL VITALS: WNL FALLS: NO RECENT FALLS ASSESSMENT: PT IS ALERT AND ORIENTED X4. DAUGHTER WAS PRESENT DURING VISIT. HE DENIES PAIN. VSS. FASTING BS WAS 83. NO SIGNS OF HYPOGLYCEMIA. SN REVIEWED SIGNS AND SYMPTOMS OF HYPO/ HYPERGLYCEMIA. PATIENT HAS PRODUCTIVE COUGH WITH CLEAR SPUTUM, DAUGHTER REPORTED PT HAS BEEN TAKING HERBAL TEA AND COUGH IS GETTING BETTER. PT HAS WALKER, BUT ONLY USE OUTSIDE THE HOUSE. SAFETY WITHIN THE HOUSE WAS REVIEWED. REPORTS GOOD APPETITE AND ADEQUATE FLUID INTAKE. DENIES SIGNS OF UTI, REPORTS REGULAR BM. PATIENT/ CAREGIVER TEACH BACK: PT VERBALIZED UNDERSTANDING COMMUNICATION WITH PHYSICIAN/ PROVIDER RELATED TO: NA NEW ORDERS: NA NEXT MD APPOINTMENTS: TOMORROW INSTRUCTED TO CALL [facility] WITH ANY QUESTIONS OR CHANGES IN CONDITION MAREK COMER LPN</paragraph> <paragraph>[Visit Date: 2024 by MATEO MACARIO PT]:</paragraph><paragraph>10/30: PATIENT IS A 74-YEAR-OLD MALE WITH HISTORY OF TYPE 2 DIABETES, CHRONIC BILATERAL LOWER EXTREMITY WOUNDS, PVD, CKD STAGE 3, PERIPHERAL NEUROPATHY, HEART FAILURE WITH PRESERVED EJECTION FRACTION, HYPERTENSION, HYPERLIPIDEMIA, LEGAL BLINDNESS, PRESENTS REFERRAL FOR HOME PT SERVICES STATUS POST STR/SNF STAY FOR RECONDITIONING STATUS POST FALL DOWN FLIGHT OF STAIRS AT HOME AND SUSTAINED SEVERAL RIGHT SIDED RIB FRACTURES AND RIGHT HUMERAL HEAD FRACTURE. PATIENT WAS NONWEIGHTBEARING RIGHT UPPER EXTREMITY AND SLING BUT PROGRESSED TO RANGE OF MOTION TOLERATED AND ABLE TO BEGIN WEIGHTBEARING EXERCISES THIS WEEK AFTER FOLLOW UP APPOINTMENT WITH [facility]. PLOF: LIVES WITH DAUGHTER IN SINGLE FAMILY HOME WITH 3 STAIRS TO ENTER. PATIENT IS TYPICALLY INDEPENDENT WITH COMMUNITY MOBILITY AND ADLS WITH STRAIGHT CANE USE, INDEPENDENT WITH MOST IADLS, PATIENT HAS HAD 2 FALLS IN THE LAST YEAR. PATIENT'S PRIMARY GOAL WITH HOME PT SERVICES TO RETURN TO PRIOR LEVEL OF FUNCTION. RIGHT SHOULDER ACTIVE ASSISTED RANGE OF MOTION 45 DEGREES FOR FLEXION/ABDUCTION TODAY. PATIENT DEMONSTRATES LOWER EXTREMITY WEAKNESS EVIDENCED BY 30 SECOND [id number] SCORE LESS THAN 8 REPETITIONS, HE HAS ELEVATED RISK FOR FALLS AND POTENTIAL REHOSPITALIZATION GIVEN TINETTI SCORE 19/30 WELL. HE WILL REQUIRE HOME PT SERVICES IN ORDER TO MAXIMIZE CURRENT LEVEL OF FUNCTION AND INDEPENDENCE TO ALLOW PATIENT TO SAFELY ACCESS AND NAVIGATE HIS HOME ENVIRONMENT HE CURRENTLY REQUIRES CGA X1 FOR TRANSFERS FROM VARIOUS HEIGHTS AND SURFACES AROUND HIS HOME, LEVEL SURFACE AMBULATION WITH STRAIGHT CANE USE, AND 4 STAIR NAVIGATION. WILL PLAN FOR WEEKLY PT VISITS UNTIL END OF EPISODE TO IMPLEMENT PLAN OF CARE. VERBAL ORDER RECEIVED FROM ANGELIQUE AT MD OFFICE FOR PT PLAN OF CARE</paragraph> <paragraph>[Visit Date: 2024 by RICHARD BOWMAN LPN]:</paragraph><paragraph>SNV 10/26 ABNORMAL VITALS: FBS 123 OTHER VITALS WITHIN ESTABLISHED PARAMETERS FALLS: NO FALLS MEDICATION CHANGES: NONE OBSERVATION AND ASSESSMENT PROVIDED: PT ALERT ORIENTEDX3, COOPERATIVE DURING VISIT. DTR/CG PRESENT DURING VISIT. PT AMBULATES IN HOME WITH SLOW STEADY GAIT, HOLDING ON TO FURNITURE FOR SUPPORT. LIMITED ROM OF RIGHT ARM. PT C/O PAIN RIGHT ARM THAT IS MANAGED WITH TYLENOL PRN WITH GOOD RELIEF. VSS, LS DIM ON RLL, O2 97%, PT SPEAKS IN FULL SENTENCES, NAD, TR EDEMA BLE, WEARS COMPRESSION SOCKS, BS 123, NO S/S OF HYPO/HYPERGLYCEMIA. SKIN ON BILAT FEET CDI. PT HAS GSSS HOME VISIT TOMMORROW TO EVAL NEED TO INCREASE DEVELOPER ARCHITECT HOURS. NO ISSUE WITH BOWELS OR BLADDER. APPETITE ADEQUATE. EDUCATION: SAFETY, CONSISTENT USE OF WALKER, PROPER FOOTWEAR, DIABETIC FOOT CARE INTERVENTIONS NEEDED AT NEXT VISIT: ASSESSMENT, TEACHING COMMUNICATION WITH MD: NOT NEEDED AT THIS VISIT NEXT MD APPOINTMENT: KIDNEY 11/01, PCP 11/02, [facility] 11/03 PT AND CAREGIVER INSTRUCTED TO CALL [facility] WITH ANY QUESTIONS OR CONCERNS AND/OR CHANGES IN CONDITION, STATE UNDERSTANDING</paragraph> Encounters Start Date/Time End Date/Time Encounter Type Admission Type Attending Clinicians Care Facility Care Department Encounter ID Discharge Date Discharge Status Discharge Condition Discharge Reason Percent Goals Met 2024-10-21 00:00:00 2024-12-19 00:00:00 Outpatient NEW ADMISSION ROSITA TOVAR [facility] [id number]
== END 2024-11-01 09:48 | disposition home or self-care (01) ==
PROVIDERS: PCP Internal Medicine; Visit Provider Internal Medicine Hypertension Specialist
DX: I12.9 Hypertensive chronic kidney disease with stage 1 through stage 4 chronic kidney disease, or unspecified chronic kidney disease (principal); N18.9 Chronic kidney disease, unspecified; R60.9 Edema, unspecified; E87.1 Hypo-osmolality and hyponatremia
CPT/HCPCS: 99214

== ENCOUNTER → 2024-11-01 08:57 | Outpatient (BNVA) | payer MEDICARE, MEDICAID, SELFPAY | PROVIDERS: PCP Internal Medicine; Visit Provider Internal Medicine Hypertension Specialist | DX: E87.1 Hypo-osmolality and hyponatremia (principal); E78.5 Hyperlipidemia, unspecified; E11.22 Type 2 diabetes mellitus with diabetic chronic kidney disease; I12.9 Hypertensive chronic kidney disease with stage 1 through stage 4 chronic kidney disease, or unspecified chronic kidney disease; N18.9 Chronic kidney disease, unspecified; R60.9 Edema, unspecified | CPT/HCPCS: 99212 ==

== ENCOUNTER 2025-05-16 08:57 | Outpatient (REF) | payer MEDICARE, MEDICAID, SELFPAY ==
[2025-05-16 13:20] LABS: Hematocrit 44.3 % (42.0-52.0); Hemoglobin 14.0 g/dl (14.0-18.0); Mean Corpuscular HGB Conc 31.6 g/dl (31.0-36.0); Mean Corpuscular Hemoglobin 27.6 pg (27.0-33.0); Mean Corpuscular Volume 87.2 fL (80.0-98.0); NRBC Abs Auto 0.000 X10*3/uL (0.0-0.012); NRBC Pct Auto 0.0 /100WBC (0.0-0.2); Platelet Count 203 X10*3/uL (160-400); Red Blood Count 5.08 X10*6/uL (4.60-5.80); White Blood Count 6.9 X10*3/uL (4.8-10.8)
[2025-05-16 13:43] LABS: Anion Gap 12 (12-20); Blood Urea Nitrogen 29 mg/dL (9-16); Calcium 8.4 mg/dL (8.4-10.2); Carbon Dioxide 25 mmol/L (22-29); Chloride 105 mmol/L (96-108); Estimated Glomerular Filt Rate 53; Potassium 4.0 mmol/L (3.3-5.1); Sodium 138 mmol/L (135-145)
== END 2025-05-16 08:58 | disposition home or self-care (01) ==
LOC: HO.HKASLDS 08:57
PROVIDERS: PCP Internal Medicine; Visit Provider Internal Medicine Hypertension Specialist
DX: I12.9 Hypertensive chronic kidney disease with stage 1 through stage 4 chronic kidney disease, or unspecified chronic kidney disease (principal); N18.9 Chronic kidney disease, unspecified; E87.1 Hypo-osmolality and hyponatremia; R60.9 Edema, unspecified
CPT/HCPCS: 36415; 80048; 85027; 99212

== ENCOUNTER 2025-05-16 08:57 | Outpatient (AMB) | payer MEDICARE, MEDICAID, SELFPAY ==
[2025-05-16 09:06] VITALS: BP 140/64; PULSE 77; O2SAT 96; BMI 34.4
--- NOTE | 2025-05-16 09:06 | HO.NEPHOV_ITS ---
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 Required: No Accompanied by: Daughter Allergies brimonidine Allergy (Verified 05/16/25 09:08) Unknown Medication List - Last Reconciled 05/16/25 by Sahil Hummel MD ferrous sulfate 325 mg PO DAILY furosemide 20 mg PO QAM insulin glargine (Lantus Solostar U-100 Insulin) 45 units subcut insulin lispro (Humalog KwikPen (U-100) Insulin) 1 sliding scale dose subcut USEASDIRECTD latanoprost 0.005% 1 drp ophthalmic (eye) QPM lidocaine 5% 1 patch topical DAILY PRN timolol maleate 0.5% 1 drp ophthalmic (eye) QAM HPI Comments Details: 73-year-old man with a history of hypertension hyperlipidemia diabetes mellitus As disease obesity he is here for follow-up. He was previously seen during hospitalization. He had a history of pulmonary edema which was treated with Lasix. He did have an episode of SVT. He is currently being followed by Cardiology as well. History of acute kidney injury superimposed on chronic kidney disease. He is here for follow-up regarding the chronic kidney disease. He is being seen at the lymphedema clinic. He was on Lasix over he ran out of medications and for the last 3 weeks he has not been taking the Lasix. There has been no change in the leg edema. 04/12/24: Doing better. Blood sugar is better controlled Waiting to go to lymphedema clinic in 11/01/24 h/o Accidental fall in Spe 2023; s/p fractures and blood transfusion Later to [facility] until Oct 20 2024 Leg edema has improved No dyspnea PFSH Surgical History H/O elbow surgery Family History Mother Diabetes Cancer Father Hypertension Social History Alcohol intake: former Patient Tobacco Use Status: Former Tobacco user Physical Exam Vital Signs: Last Vital Signs Pulse 77 05/16/25 09:06 BP 140/64 H 05/16/25 09:06 Pulse Ox 96 05/16/25 09:06 Oxygen Delivery Method Room Air 05/16/25 09:06 BMI result Body Mass Index 34.4 Comfortable Neck supple no JVD. Lungs entry equal no rales. DEcreased Air entry on right base Heart S1-S2 heard no gallop or rub. Abdomen soft nontender. Neuro alert awake oriented. No asterixis. Extremities 1+ edema. Results Reviewed Nephrology Results: Hgb, (14.0-18.0) 13.6 g/dl L 04/12/24 WBC, (4.8-10.8) 7.4 X10*3/uL 04/12/24 Plt Count, (160-400) 203 X10*3/uL 04/12/24 Sodium, (135-145) 137 mmol/L 04/12/24 Potassium, (3.3-5.1) 4.6 mmol/L 04/12/24 Chloride, (96-108) 104 mmol/L 04/12/24 Carbon Dioxide, (22-29) 27 mmol/L 04/12/24 BUN, (9-16) 28 mg/dL H 04/12/24 Creatinine, (0.5-1.4) 1.35 mg/dL 04/12/24 Calcium, (8.4-10.2) 8.4 mg/dL 04/12/24 Assessment & Plan Assessment & Plan (1) CKD (chronic kidney disease): Code(s): N18.9 - Chronic kidney disease, unspecified Category: Medical (2) HTN (hypertension): Code(s): I10 - Essential (primary) hypertension Category: Medical (3) Edema: Code(s): R60.9 - Edema, unspecified Category: Medical (4) Hyponatremia: Code(s): E87.1 - Hypo-osmolality and hyponatremia Category: Medical Plan Elderly man with a history of CKD in a setting of longstanding hypertension ,diabetes ,obesity. Renal function has been relatively stable. He had DONG which has resolved. Goal is to slow the progression of thekidney disease. Continue to avoid hypotension. Sustained DONG - cr was 2.7 and returned to 1.42 as of 10/19/24 Creatinine has been relatively stable around 1.42 mg/dL. Continue to avoid nephrotoxic agents including NSAIDs. He will benefit from SGLT2 inhibitors As for the hyponatremia - the recent serum sodium was normal. The serum sodium drops less than 130 millimoles I would recommend p.o. water restriction. DC Furosemide 20 mg QD Watch daily weight and use PRN No new labs- Done today and pending Medications: Discontinued furosemide Discontinued Reason: Doctor's Order 20 mg PO QAM 90 tabs 1RF Coding Level of Care Code Est Pt Level 4 (35178) Diagnoses CKD (chronic kidney disease) N18.9 HTN (hypertension) I10 Edema R60.9 Hyponatremia E87.1
--- OUTSIDE RECORDS SUMMARY | 2025-05-16 09:23 | XMS_ITS | Clinical Summary ---
Author Organization [facility] Address [address] [facility] [address] [place] [address] Phone Care Team Providers Care Fine Wire Drawer Name Role Phone Jordy Beltre MD Primary Care Provider Allergies Active Allergy Reactions Criticality Noted Date Comments Brimonidine 12/09/2022 Medications ammonium lactate (AMLACTIN) 12 % cream Apply 140 application topically at bed time 2 Active dilTIAZem CD (CARDIZEM CD) 180 MG 24 hr capsule Take 180 mg by mouth 1 (one) time each day 2 Active furosemide (LASIX) 20 MG tablet Take 20 mg by mouth 1 (one) time each day 2 Active isosorbide mononitrate (IMDUR) 60 MG 24 hr tablet Take 60 mg by mouth 1 (one) time each day in the morning 2 Active ferrous sulfate 325 (65 Fe) MG tablet Take 325 mg by mouth 1 (one) time each day with breakfast Active NovoLOG FLEXPEN 100 UNIT/ML injection THREE TIMES DAILY BEFORE MEALS PER SLIDING SCALE, UP TO 45 UNITS DAY 3 Active Levemir FlexPen 100 UNIT/ML injection INJECT 45 UNITS INTO THE SKIN AT BEDTIME. 3 Active latanoprost (XALATAN) 0.005 % ophthalmic solution INSTILL 1 DROP INTO BOTH EYES IN THE EVENING 3 Active timolol (TIMOPTIC) 0.5 % ophthalmic solution INSTILL 1 DROP INTO BOTH EYES IN THE MORNING 3 Active triamcinolone (KENALOG) 0.025 % ointment APPLY TO LEGS TWICE A DAY NEEDED FLARES, DECREASE USE SYMPTOMS IMPROVE. 3 Active Tiadylt ER 180 MG 24 hr capsule Take by mouth 1 (one) time each day Active Active Problems Problem Noted Date Diagnosed Date Neuropathy due to diabetes mellitus 06/09/2023 Limping 06/09/2023 06/09/2023 Obese class II 06/09/2023 06/09/2023 Vascular insufficiency 06/09/2023 Anemia in chronic kidney disease 08/05/2022 Chronic kidney disease 04/01/2022 Acute nontraumatic kidney injury 04/01/2022 Other iron deficiency anemia 04/01/2022 Cellulitis 04/01/2022 Acute heart failure 04/01/2022 Peripheral vascular disease 04/01/2022 Acute hypoxemic respiratory failure 04/01/2022 Family History Medical History Relation Comments Hypertension Father Cancer Mother Diabetes Mother Relation Status Comments Father Mother Social History Tobacco Use Types Packs/Day Years Used Date Smoking Tobacco: Former Smokeless Tobacco: Never Tobacco Cessation:Counseling Given: No Alcohol Use Standard Drinks/Week Comments Not Currently 0 (1 standard drink = 0.6 oz pur e alcohol) Sex and Gender Information Value Date Recorded Sex Assigned at Not on file Legal Sex Male 5:11 PM EST Gender Identity Not on file Sexual Orientation Not on file Last Filed Vital Signs Vital Sign Reading Time Taken Comments Blood Pressure 120/58 06/09/2023 1:48 PM EDT Pulse 78 06/09/2023 1:48 PM EDT Temperature - - Respiratory Rate - - Oxygen Saturation 96% 06/09/2023 1:48 PM EDT Inhaled Oxygen Concentration - - Weight 116 kg (255 lb) 06/09/2023 1:48 PM EDT Height 180.3 cm (5' 11 ) 12/09/2022 1:30 PM EST Body Mass Index 35.57 12/09/2022 1:30 PM EST Plan of Treatment Health Maintenance Due Date Last Done Comments Pneumococcal Vaccine: 50+ Ye ars (1 of 2 - PCV) 1969 Diabetes: Hemoglobin A1C 04/01/2022 Diabetes: Ophthalmology Exam 04/01/2022 Diabetes: Pedal Pulse Checked 04/01/2022 Diabetes: Sensory Foot Exam 04/01/2022 Diabetes: Visual Foot Exam 04/01/2022 Influenza Vaccine (#1) 2025 Hepatitis B Vaccine Aged Out No longe r eligible based on patient's age to complete this topic Insurance Medicare Medicaid [place] Care Teams Fine Wire Drawer Relationship Specialty Start Date End Date Jordy Beltre MD PCP - General Internal Medicine 08/05/22
--- OUTSIDE RECORDS SUMMARY | 2025-05-16 09:23 | XMS_ITS ---
Author Name [facility] Organization Unknown Care Team Organization Name Specialty Phone Email Start Date End Da te [facility] Jordy Beltre Primary Care 08/25/2022 06/05/20 24
--- OUTSIDE RECORDS SUMMARY | 2025-05-16 09:23 | XMS_ITS | Encounter Summary ---
Author Organization [facility] Address [address] [place] [address] Care Team Providers Care Compound Specialist Name Role Phone Jordy Beltre MD Primary Care Provider [phone] Encounter Details Date Type Department Care Team (Late Contact Info) Description 09/23/2024 Lab Requisition [facility] - Main Lab [address] [facility] [place] [phone] Sophy Sales MD [address] [place] [id number] Type 2 diabetes mellitus without complications ([facility]/HCC V24, [facility]/HCC V28) Social History Tobacco Use Types Packs/Day Years Used Date Smoking Tobacco: Never Smokeless Tobacco: Never Alcohol Use Standard Drinks/Week Comments No 0 (1 standard drink = 0.6 oz pur e alcohol) Sex and Gender Information Value Date Recorded Sex Assigned at Not on file Legal Sex Male 10:58 PM EST Gender Identity Not on file Sexual Orientation Not on file documented as of this encounter Plan of Treatment Upcoming Encounters Date Type Department Care Team (Late Contact Info) Description 07/12/2025 9:00 AM EDT Office Visit [facility] Hematology Oncology [address] [place] [phone] Mindy Peoples PA [address] [place] [address] 07/17/2025 9:45 AM EDT Office Visit Endocrinology [address] [phone] Seda Rod MD [address] [place] [phone] 11/02/2025 9:00 AM EST Office Visit Internal Medicine - [address] [phone] Jordy Beltre MD [address] [place] [phone] documented as of this encounter Goals Goal Patient Goal Type Associated Problems Recent Progress Patient-Stated? Author Wound volume breakdown reduced by X% by week 4 Care Plan Impaired Tissue No Qi Hughes RN Wound volume breakdown reduced by X% by week 8 Care Plan Impaired Tissue No Qi Hughes RN Wound volume breakdown reduced by X% by week 12 Care Plan Impaired Tissue No Qi Hughes RN Quit using tobacco (cigarettes, smokeless, etc) Care Plan Education needed on impact of smoking on wound No Qi Hughes RN Reduce tobacco use (cigarettes, smokeless, etc) Care Plan Education needed on impact of smoking on wound Qi Carter RN Decrease Wound Volume by X% by date (in notes) Care Plan Education needed on impact of smoking on wound No Qi Hughes RN Patient and Caregiver Understand Wound Care Education Care Plan Education needed related to ulceration/compr omised skin integrity. No Qi Hughes RN documented as of this encounter Procedures Procedure Name Priority Date/Time Associated Diagnosis Comments COMPLETE BLOOD COUNT Routine 09/25/2024 7:56 AM EST Type 2 diabetes mellitus without complications (CMS/HCC) BASIC METABOLIC PANEL Routine 09/25/2024 7:56 AM EST Type 2 diabetes mellitus without complications (CMS/HCC) documented in this encounter Results * (ABNORMAL) Basic metabolic panel (09/25/2024 7:56 AM EST) Sodium 135 133 - 145 mmol/L LAB CHEMISTRY METHOD 09/25/2024 12:24 PM [facility] Potassium 4.3 3.5 - 5.5 mmol/L LAB CHEMISTRY METHOD 09/25/2024 12:24 PM [facility] Chloride 101 96 - 110 mmol/L LAB CHEMISTRY METHOD 09/25/2024 12:24 PM [facility] CO2 26 21 - 32 mmol/L LAB CHEMISTRY METHOD 09/25/2024 12:24 PM [facility] Anion Gap 8 3 - 11 LAB CHEMISTRY METHOD 09/25/2024 12:24 PM [facility] Glucose 172(H) 70 - 100 mg/dL LAB CHEMISTRY METHOD 09/25/2024 12:24 PM [facility] BUN 29(H) 5 - 25 mg/dL LAB CHEMISTRY METHOD 09/25/2024 12:24 PM [facility] Creatinine 1.48(H) 0.70 - 1.30 mg/dL LAB CHEMISTRY METHOD 09/25/2024 12:24 PM [facility] eGFR 49(L) >=60 mL/min/1. 73m2 LAB CHEMISTRY METHOD 09/25/2024 12:24 PM [facility] Comment:Calculation based on the Chronic Kidney Disease Epidemiology Collaboration (CKD-EPI) equation refit without adjustment for race. BUN/Creatinine Ratio 19.6 LAB CHEMISTRY METHOD 09/25/2024 12:24 PM [facility] Calcium 8.8 8.5 - 10.5 mg/dL LAB CHEMISTRY METHOD 09/25/2024 12:24 PM [facility] Blood Venous blood specimen / Unknown Venipuncture / Unknown 09/25/2024 7:56 AM EST 09/25/2024 11:07 AM EST us Sophy Sales MD LAB BLOOD ORDERABLES Fin al Result [facility] [address] [place] [address], * (ABNORMAL) Complete blood count (09/25/2024 7:56 AM EST) [facility] Signature WBC 7.6 4.8 - 10.8 K/mcL LAB HEMETOLOGY METHOD 09/25/2024 12:26 PM [facility] RBC 4.50 4.50 - 5.50 M/mcL LAB HEMETOLOGY METHOD 09/25/2024 12:26 PM [facility] Hemoglobin 12.3(L) 13.5 - 17.5 g/dL LAB HEMETOLOGY METHOD 09/25/2024 12:26 PM [facility] Hematocrit 39.8(L) 42.0 - 54.0 % LAB HEMETOLOGY METHOD 09/25/2024 12:26 PM EST [facility] MCV 88.2 79.0 - 98.0 FL LAB HEMETOLOGY METHOD 09/25/2024 12:26 PM [facility] MCH 27.3 27.0 - 32.0 pcg LAB HEMETOLOGY METHOD 09/25/2024 12:26 PM [facility] MCHC 30.9(L) 32.0 - 37.0 g/dL LAB HEMETOLOGY METHOD 09/25/2024 12:26 PM EST [facility] RDW 13.6 11.0 - 15.0 % LAB HEMETOLOGY METHOD 09/25/2024 12:26 PM [facility] Platelets 292 130 - 400 K/mcL LAB HEMETOLOGY METHOD 09/25/2024 12:26 PM [facility] MPV 10.4 7.0 - 11.0 FL LAB HEMETOLOGY METHOD 09/25/2024 12:26 PM [facility] NRBC 0.0 <1.0 % LAB HEMETOLOGY METHOD 09/25/2024 12:26 PM EST [facility] NRBC Absolute 0.00 <0.10 K/mcL LAB HEMETOLOGY METHOD 09/25/2024 12:26 PM EST [facility] Blood Venous blood specimen / Unknown Venipuncture / Unknown 09/25/2024 7:56 AM EST 09/25/2024 11:06 AM EST us Sophy Sales MD LAB BLOOD ORDERABLES Fin al Result [facility] [address] [place] [address], documented in this encounter Visit Diagnoses Diagnosis Type 2 diabetes mellitus without complications (CMS/HCC V24, CMS/HCC V28) documented in this encounter Additional Health Concerns Active Problems Noted Date Diagnosed Date Impaired Tissue 09/04/2024 Education needed on impact of smoking on wound 1 11/04/2023 Education needed related to ulceration/compromised skin integrity. 09/04/2024 documented as of this encounter Care Teams Compound Specialist Relationship Specialty Start Date End Date Jordy Beltre MD [address] [place] [phone] PCP - General Internal Medicine 12/25/19 documented as of this encounter
== END 2025-05-16 09:20 | disposition home or self-care (01) ==
LOC: HO.HKAS 08:57
PROVIDERS: PCP Internal Medicine; Visit Provider Internal Medicine Hypertension Specialist
DX: I12.9 Hypertensive chronic kidney disease with stage 1 through stage 4 chronic kidney disease, or unspecified chronic kidney disease (principal); N18.9 Chronic kidney disease, unspecified; R60.9 Edema, unspecified; E87.1 Hypo-osmolality and hyponatremia
CPT/HCPCS: 99214